=== PATIENT | female | born 1955 | race Caucasian/White ===

== ENCOUNTER 2016-12-23 15:05 | Emergency (ER) | payer MEDICAID ==
[~2016-12-23 15:05] MED LIST: PERC5TAB12 PO
[2016-12-23 15:07] VITALS: BP 122/75; PULSE 107; RESP 16; TEMP 97.9; O2SAT 96
[2016-12-23 16:10] VITALS: BP 111/64; PULSE 100; RESP 18; O2SAT 94
--- NOTE | 2016-12-23 16:25 | PD ---
HPI Chief Complaint: Diabetic Time Seen by Provider: 16:25 Travel History International Travel<30 days: No Contact w/Intl Traveler<30days: No Traveled to known affect area: No History of Present Illness HPI 61-year-old female with history of diabetes, hypertension, metastatic breast cancer to her bone, currently on immunotherapy, presents to the emergency department for evaluation of elevated blood glucose. Patient states it has been in the 300s this week and up to 400 today. This caused her to become concerned so she came to the emergency department. Patient reports increasing fatigue. No recent illnesses, fever, chills. No nausea or vomiting. Patient takes metformin. She is not on insulin. Denies any chest Tightness. No difficulty breathing. No other symptoms to report. PFSH Past Medical History Cancer: Yes (BREAST AND BONE) Diabetes: Yes Patient Takes Glucophage: Yes ?: Not Past Surgical History Hysterectomy: Yes Mastectomy: Yes (left breast) Social History Alcohol Use: No Tobacco Use: No Substance Use: No Allergies-Medications (Allergen,Severity, Reaction): Coded Allergies: No Known Allergies (Unverified , 12/23/16) Reported Meds & Prescriptions Reported Meds & Active Scripts Active Percocet 5-325 mg (Oxycodone/Acetaminophen) Oxycodone 5/325 Acetaminophen Tab 1- 2 Tab PO Q6H PRN Review of Systems Except as stated in HPI: all other systems reviewed are Neg Physical Exam Narrative GENERAL: Well-nourished female patient, no acute distress SKIN: Warm and dry. Left mastectomy. HEAD: Atraumatic. Normocephalic. EYES: Pupils equal and round. No scleral icterus. No injection or drainage. ENT: No nasal bleeding or discharge. Mucous membranes pink and moist. NECK: Trachea midline. No JVD. CARDIOVASCULAR: Elevated rate and rhythm. No murmur appreciated. RESPIRATORY: No accessory muscle use. Clear to auscultation. Breath sounds equal bilaterally. GASTROINTESTINAL: Abdomen soft, non-tender, nondistended. Hepatic and splenic margins not palpable. MUSCULOSKELETAL: No obvious deformities. No clubbing. No cyanosis. No edema. NEUROLOGICAL: Awake and alert. No obvious cranial nerve deficits. Motor grossly within normal limits. Normal speech. PSYCHIATRIC: Appropriate mood and affect; insight and judgment normal. Data Data Last Documented VS Vital Signs Date Time Temp Pulse Resp B/P Pulse Ox O2 Delivery O2 Flow Rate FiO2 12/23/16 16:10 100 18 111/64 94 Room Air 12/23/16 15:07 97.9 Orders Complete Blood Count With Diff (12/23/16 16:41) Comprehensive Metabolic Panel (12/23/16 16:41) Beta Hydroxybutyrate (Acetone) (12/23/16 16:41) Blood Glucose (12/23/16 16:41) Ecg Monitoring (12/23/16 16:41) Iv Access Insert/Monitor (12/23/16 16:41) Oximetry (12/23/16 16:41) NPO (12/23/16 16:41) Sodium Chloride 0.9% Flush (Ns Flush) (12/23/16 16:45) Sodium Chlor 0.9% 1000 Ml Inj (Ns 1000 M (12/23/16 17:15) Insulin Human Regular Inj (Novolin R Inj (12/23/16 18:00) Labs Laboratory Tests Test 12/23/16 16:50 White Blood Count 7.2 TH/MM3 Red Blood Count 4.41 MIL/MM3 Hemoglobin 11.4 GM/DL Hematocrit 35.8 % Mean Corpuscular Volume 81.1 FL Mean Corpuscular Hemoglobin 25.9 PG Mean Corpuscular Hemoglobin 32.0 % Concent Red Cell Distribution Width 16.3 % Platelet Count 156 TH/MM3 Mean Platelet Volume 8.6 FL Neutrophils (%) (Auto) 77.1 % Lymphocytes (%) (Auto) 15.8 % Monocytes (%) (Auto) 5.9 % Eosinophils (%) (Auto) 0.8 % Basophils (%) (Auto) 0.4 % Neutrophils # (Auto) 5.5 TH/MM3 Lymphocytes # (Auto) 1.1 TH/MM3 Monocytes # (Auto) 0.4 TH/MM3 Eosinophils # (Auto) 0.1 TH/MM3 Basophils # (Auto) 0.0 TH/MM3 CBC Comment DIFF FINAL Differential Comment Sodium Level 136 MEQ/L Potassium Level 4.6 MEQ/L Chloride Level 101 MEQ/L Carbon Dioxide Level 27.7 MEQ/L Anion Gap 7 MEQ/L Blood Urea Nitrogen 11 MG/DL Creatinine 0.97 MG/DL Estimat Glomerular Filtration 59 ML/MIN Rate Random Glucose 367 MG/DL Calcium Level 9.4 MG/DL Total Bilirubin 0.3 MG/DL Aspartate Amino Transf 74 U/L (AST/SGOT) Alanine Aminotransferase 113 U/L (ALT/SGPT) Alkaline Phosphatase 76 U/L Total Protein 8.4 GM/DL Albumin 3.8 GM/DL B-Hydroxybutyrate 0.65 MMOL/L MDM Medical Decision Making Medical Screen Exam Complete: Yes Emergency Medical Condition: Yes Medical Record Reviewed: Yes Differential Diagnosis Hyperglycemia versus DKA versus electrolyte abnormality versus dehydration Narrative Course 61 year-old female presents to the emergency department for evaluation. Interpretation services are utilized through [facility]/ [facility]. Patient appears well. IV access was obtained and labs are sent. She is given 1 L normal saline fluid. CBC is without acute concern. CMP is with hyperglycemia 367. Beta hydroxybutyrate is 0.65. She was already given normal saline bolus and then added insulin by my attending physician. Patient will be discharged home to follow-up with primary care provider. She agrees to return immediately with any acute restriction of symptoms. Diagnosis Primary Impression: Hyperglycemia due to type 2 diabetes mellitus Qualified Code: E11.65 - Type 2 diabetes mellitus with hyperglycemia, without long-term current use of insulin Referrals: Primary Care Physician Patient Instructions: Diabetic Hyperglycemia (GEN), General Instructions Additional Instructions: Maintain adequate oral hydration Continue medication as prescribed Follow-up with a primary care provider Return immediately with any acute worsening of symptoms Disposition: 01 DISCHARGE HOME Condition: Stable CamrynTierra SUERO Dec 23, 2016 16:25
[2016-12-23] MEDS ORDERED: SODIUM CHLORIDE 0.9% FLUSH 5 ML FLUSH IVF PRN (16:45)
[2016-12-23 17:14] LABS: AUTOMATED NEUTROPHIL # 5.5 TH/MM3 (1.8-7.7); BASOPHIL % 0.4 % (0.0-2.0); EOSINOPHIL # 0.1 TH/MM3 (0-0.4); EOSINOPHIL % 0.8 % (0.0-4.0); HEMATOCRIT 35.8 % (35.0-46.0); HEMO FLAGS DIFF FINAL; LYMPH % 15.8 % (9.0-44.0); LYMPHOCYTE # 1.1 TH/MM3 (1.0-4.8); MEAN CELL VOLUME 81.1 FL (80.0-100.0); MEAN CORPUSCULAR HEMOGLOBIN 25.9 PG (27.0-34.0); MONO % 5.9 % (0.0-8.0); NEUT % 77.1 % (16.0-70.0); PLATELET COUNT 156 TH/MM3 (150-450); RED BLOOD COUNT 4.41 MIL/MM3 (4.00-5.30); RED CELL DISTRIBUTION WIDTH 16.3 % (11.6-17.2); WHITE BLOOD COUNT 7.2 TH/MM3 (4.0-11.0)
[2016-12-23] MEDS ORDERED: SODIUM CHLOR 0.9% 1000 ML INJ 1,000 ML IV ONE (17:15)
[2016-12-23 17:47] LABS: ALKALINE PHOSPHATASE 76 U/L (45-117); ALT (GPT) 113 U/L (10-53); ANION GAP 7 MEQ/L (5-15); AST (GOT) 74 U/L (15-37); BETA-HYDROXYBUTYRATE 0.65 MMOL/L (0.00-0.39); BICARBONATE 27.7 MEQ/L (21.0-32.0); BLOOD UREA NITROGEN 11 MG/DL (7-18); CHLORIDE 101 MEQ/L (98-107); GLOMERULAR FILTRATION RATE 59 ML/MIN (>89); SODIUM (NA) 136 MEQ/L (136-145); TOTAL BILIRUBIN ADULT 0.3 MG/DL (0.2-1.0)
[2016-12-23 17:48] LABS: POTASSIUM 4.6 MEQ/L (3.5-5.1)
[2016-12-23] MEDS ORDERED: INSULIN HUMAN REGULAR 1,000 UNITS/10 ML VIAL SQ ONE ×2 (18:00→18:30)
--- NOTE | 2016-12-23 18:04 | PD ---
Data Data Last Documented VS Vital Signs Date Time Temp Pulse Resp B/P Pulse Ox O2 Delivery O2 Flow Rate FiO2 12/23/16 16:10 100 18 111/64 94 Room Air 12/23/16 15:07 97.9 Orders Complete Blood Count With Diff (12/23/16 16:41) Comprehensive Metabolic Panel (12/23/16 16:41) Beta Hydroxybutyrate (Acetone) (12/23/16 16:41) Blood Glucose (12/23/16 16:41) Ecg Monitoring (12/23/16 16:41) Iv Access Insert/Monitor (12/23/16 16:41) Oximetry (12/23/16 16:41) NPO (12/23/16 16:41) Sodium Chloride 0.9% Flush (Ns Flush) (12/23/16 16:45) Sodium Chlor 0.9% 1000 Ml Inj (Ns 1000 M (12/23/16 17:15) Insulin Human Regular Inj (Novolin R Inj (12/23/16 18:00) Labs Laboratory Tests Test 12/23/16 16:50 White Blood Count 7.2 TH/MM3 Red Blood Count 4.41 MIL/MM3 Hemoglobin 11.4 GM/DL Hematocrit 35.8 % Mean Corpuscular Volume 81.1 FL Mean Corpuscular Hemoglobin 25.9 PG Mean Corpuscular Hemoglobin 32.0 % Concent Red Cell Distribution Width 16.3 % Platelet Count 156 TH/MM3 Mean Platelet Volume 8.6 FL Neutrophils (%) (Auto) 77.1 % Lymphocytes (%) (Auto) 15.8 % Monocytes (%) (Auto) 5.9 % Eosinophils (%) (Auto) 0.8 % Basophils (%) (Auto) 0.4 % Neutrophils # (Auto) 5.5 TH/MM3 Lymphocytes # (Auto) 1.1 TH/MM3 Monocytes # (Auto) 0.4 TH/MM3 Eosinophils # (Auto) 0.1 TH/MM3 Basophils # (Auto) 0.0 TH/MM3 CBC Comment DIFF FINAL Differential Comment Sodium Level 136 MEQ/L Potassium Level 4.6 MEQ/L Chloride Level 101 MEQ/L Carbon Dioxide Level 27.7 MEQ/L Anion Gap 7 MEQ/L Blood Urea Nitrogen 11 MG/DL Creatinine 0.97 MG/DL Estimat Glomerular Filtration 59 ML/MIN Rate Random Glucose 367 MG/DL Calcium Level 9.4 MG/DL Total Bilirubin 0.3 MG/DL Aspartate Amino Transf 74 U/L (AST/SGOT) Alanine Aminotransferase 113 U/L (ALT/SGPT) Alkaline Phosphatase 76 U/L Total Protein 8.4 GM/DL Albumin 3.8 GM/DL B-Hydroxybutyrate 0.65 MMOL/L [facility] Supervised Visit with ASHWIN: Yes Differential Diagnosis I, Dr. Watson, have reviewed the advance practice practioner's documentation and am in agreement, met with the patient face to face, made the diagnosis, and the medical decision making was done by me. *My assessment and Findings: 61-year-old female with history of type II non- insulin-dependent diabetes, HTN and metastatic breast cancer here with complaint of elevated blood glucose in the 300s and 400s. She denies any polyuria, polydipsia, but does note some increasing fatigue. Exam is unremarkable, no notable peripheral edema, regular rate and rhythm. Differential with hyperglycemia, DKA, HHS, electrolyte abnormality. Laboratory workup notable only for high blood glucose. Patient given first dose of insulin , IV fluids here. She sees Dr. Zhang locally and was encouraged to follow-up with his abdomen as an outpatient for potentially starting insulin daily. Condition: Stable Preethi Watson MD Dec 23, 2016 18:04
[2016-12-23 18:12] VITALS: RESP 18; O2SAT 98
[2016-12-23 18:39] VITALS: BP 131/62
== END 2016-12-23 18:56 | disposition home or self-care (01) ==
LOC: NEPE 15:05
DX: E11.65 Type 2 diabetes mellitus with hyperglycemia (principal); I10 Essential (primary) hypertension; C50.919 Malignant neoplasm of unspecified site of unspecified female breast; C79.51 Secondary malignant neoplasm of bone; Z79.4 Long term (current) use of insulin; Z79.899 Other long term (current) drug therapy
CPT/HCPCS: 80053; 82010; 85025; 96372; 99284; J1815; J7030

== ENCOUNTER 2017-04-23 13:06 | Emergency (ER) | payer MEDICAID ==
[2017-04-23 13:11] VITALS: BP 142/68; PULSE 98; RESP 20; TEMP 97.9; O2SAT 97
--- NOTE | 2017-04-23 13:39 | PD ---
Physical Exam Time Seen by Provider: 13:38 Narrative 61 y/o female here for evaluation of high blood pressure, L sided facial pain. Pain started one week ago. Vital signs reviewed. Seen at triage desk. Awaiting bed placement. Data Data Last Documented VS Vital Signs Date Time Temp Pulse Resp B/P Pulse Ox O2 Delivery O2 Flow Rate FiO2 04/23/17 13:11 97.9 98 20 142/68 97 Room Air MDM Medical Record Reviewed: Yes Supervised Visit with ASHWIN: Moises Lilly Apr 23, 2017 13:39
[2017-04-23] MEDS ORDERED: ULTR50TA5 PO (15:28)
--- NOTE | 2017-04-23 15:28 | PD ---
HPI Chief Complaint: Facial Pain or Swelling Time Seen by Provider: 15:08 Travel History International Travel<30 days: No Contact w/Intl Traveler<30days: No Traveled to known affect area: No History of Present Illness HPI 61-year-old female complaining left-sided facial pain and swelling. Patient states the symptoms started a week ago. Patient was seen by a dentist yesterday and was told it patient has the gum infection. Patient was on amoxicillin and then was changed to Cipro today. Patient has been taking oxycodone for pain. Patient also has been taking ibuprofen for pain. Patient states that the pain persists despite taking oxycodone and ibuprofen. Patient denies any fever chills. Patient states that the pain is sharp severe pain started on the left-sided jaw with radiation to the nose. Patient denies any neck pain. Patient denies any chest pain or shortness of breath. Patient states that her blood pressure has been elevated because of the pain. On a scale of 1-10 the pain is a 9. PFSH Past Medical History Cancer: Yes (BREAST AND BONE) Diabetes: Yes Past Surgical History Hysterectomy: Yes Mastectomy: Yes (left breast) Social History Alcohol Use: No Tobacco Use: No Substance Use: No Allergies-Medications (Allergen,Severity, Reaction): Coded Allergies: No Known Allergies (Unverified , 12/23/16) Reported Meds & Prescriptions Reported Meds & Active Scripts Active Review of Systems General / Constitutional: No: Fever Eyes: No: Visual changes HENT: No: Headaches Cardiovascular: No: Chest Pain or Discomfort Respiratory: No: Shortness of Breath Gastrointestinal: No: Abdominal Pain Genitourinary: No: Dysuria Musculoskeletal: No: Pain Skin: No Rash Neurologic: No: Weakness Psychiatric: No: Depression Endocrine: No: Polydipsia Hematologic/Lymphatic: No: Easy Bruising Physical Exam Narrative GENERAL: Well-nourished, well-developed patient. SKIN: Focused skin assessment warm/dry. HEAD: Normocephalic. EYES: No scleral icterus. No injection or drainage. NECK: Supple, trachea midline. No JVD or lymphadenopathy. CARDIOVASCULAR: Regular rate and rhythm without murmurs, gallops, or rubs. RESPIRATORY: Breath sounds equal bilaterally. No accessory muscle use. GASTROINTESTINAL: Abdomen soft, non-tender, nondistended. MUSCULOSKELETAL: No cyanosis, or edema. BACK: Nontender without obvious deformity. No CVA tenderness. Patient had mild soft tissue swelling with tenderness on the left mandible area. No induration. No redness no heat. No cervical lymphadenopathy. Data Data Last Documented VS Vital Signs Date Time Temp Pulse Resp B/P Pulse Ox O2 Delivery O2 Flow Rate FiO2 04/23/17 13:11 97.9 98 20 142/68 97 Room Air Orders Ketorolac Inj (Toradol Inj) (04/23/17 15:30) MDM Medical Decision Making Medical Screen Exam Complete: Yes Emergency Medical Condition: Yes Differential Diagnosis Differential diagnosis including gingivitis, dental abscess. Narrative Course 61-year-old female with pain and swelling of the left jaw. Patient was seen by a dentist and on pain medication and antibiotic. Patient has appointment for follow-up with a dentist. Diagnosis Primary Impression: Gingivitis Patient Instructions: General Instructions Additional Instructions: Stop Cipro. Clindamycin as directed. Ultram in addition to on a medication for pain. Follow-up with the dentist. Return if worse. Med/Other Pt SpecificInfo: Prescription(s) given Scripts Clindamycin 150 Mg Cap2 Tab PO Q6H #80 CAP Prov:Charles Beck MD 04/23/17 Tramadol (Ultram)50 Mg Tab50 Mg PO Q6H PRN (PAIN) #30 TAB Ref 0 Prov:Charles Beck MD 04/23/17 Disposition: 01 DISCHARGE HOME Condition: Stable Charles Beck MD Apr 23, 2017 15:28
[2017-04-23] MEDS ORDERED: CLIN1CAP5 PO (15:29)
[2017-04-23] MEDS ORDERED: KETOROLAC TROMETHAMINE 60 MG/2 ML (IM) VIAL IM ONE (15:30)
[2017-04-23] MEDS ORDERED: AMOX500C PO (15:47)
== END 2017-04-23 16:02 | disposition home or self-care (01) ==
LOC: NEPD 13:06
DX: K05.10 Chronic gingivitis, plaque induced (principal); R51 Headache; E11.9 Type 2 diabetes mellitus without complications
CPT/HCPCS: 96372; 99284; J1885

== ENCOUNTER 2018-06-21 16:48 | Inpatient (IN) ==
[2018-06-21] MEDS ORDERED: Sod Chloride 0.9% Inj 1,000 ML IV.SIG SCH ×2 (17:00→17:15)
--- NOTE | 2018-06-21 17:12 | ED ---
HPI General Chief complaint: Nausea/Vomiting/Diarrhea Stated complaint: Medical Time Seen by Provider: 06/21/18 16:49 Source: patient, family, EMS and old records reviewed Mode of arrival: EMS Limitations: other (clinical acuity) History of Present Illness HPI Narrative: 62 y/o female presents with hypotension with a systolic blood pressure in the 40s per the ambulance team. They could not get IV access. She has been vomiting and not eating over the past couple of days. They states she has history of breast cancer and stopped chemo 2 weeks ago. Patient speaks [place] and family is currently not available so history is significantly limited but she denies pain. MD complaint: nausea and vomiting Onset (ago): day(s) Related Data Home Medications Medication Instructions Recorded Confirmed Unable to Obtain Home Meds 06/21/18 06/21/18 Allergies Allergy/AdvReac Type Severity Reaction Status Date / Time No Known Allergies Allergy Unverified 06/21/18 17:33 Review of Systems ROS: all other systems reviewed are negative PMFSH History History Provided By: Patient (ovarian and breast cancer that metastasized to bone per her , diabetes, port; Dr. Quinteros is her oncologist) Medical History Medical History Breast cancer (Acute) Cancer (Acute) Diabetes (Acute) FHx: chemotherapy (Acute) Surgical History Surgical History Port-A-Cath in place (Acute) H/O left mastectomy (Acute) Family History Family History Other Family history non-contributory Social History Social History Substance History: No History of Abuse Second Hand Smoke Exposure: No Smoking Status: Never smoker How Often Do You Have a Drink Containing Alcohol: Never Recent Travel in [facility] within the Last 8 Weeks: No Recent Out of Country Travel within the Last 8 Weeks: No Exam Narrative Exam Narrative: GENERAL: 62 y/o female who appears critically ill SKIN: Focused skin assessment diaphoretic HEAD: Atraumatic. Normocephalic. EYES: Pupils equal and round. No scleral icterus. No injection or drainage. ENT: No nasal bleeding or discharge. Mucous membranes pink and moist. NECK: Trachea midline. No JVD. CARDIOVASCULAR: Regular rate and rhythm. RESPIRATORY: No accessory muscle use. Clear to auscultation. Breath sounds equal bilaterally. GASTROINTESTINAL: Abdomen soft, non-tender, nondistended. MUSCULOSKELETAL: No obvious deformities. No clubbing. No cyanosis. No edema. NEUROLOGICAL: Awake and alert. Motor grossly within normal limits. Normal speech. Course Hospital Course: Aggregate critical care time was 60 minutes. Time to perform other separately billable procedures was not included in the critical care time. My time did not include minutes spent treating any other patients simultaneously or on activities that did not directly contribute to the patient's treatment. The services I provided to this patient were to treat and/or prevent clinically significant deterioration that could result in: shock , I provided critical care services requiring my management, as noted below: Chart data review, documentation time, medication orders and management, vital sign assessments/reviewing monitor data, ordering and reviewing lab tests, ordering and interpreting/reviewing x-rays and diagnostic studies, care of the patient and discussion of the patient with the admitting physicians. Reevaluation(s) Reevaluation #1: Patient's blood pressure has improved with IV fluid hydration. Will repeat bolus. Patient still appears critically ill. Given history and appearance with signs of sepsis she will need to be monitored closely in the ICU. and patient are wanting still full code. Consultations Consultation #1: dr herzog agrees to admit Initial Documented Vital Signs Temperature 97.6 F 06/21/18 17:34 Pulse Rate 144 H 06/21/18 17:34 Respiratory Rate 22 06/21/18 17:34 Blood Pressure 102/59 L 06/21/18 17:34 Pulse Oximetry 97 06/21/18 17:34 Last Documented Vital Signs Temperature 97.6 F 06/21/18 17:34 Pulse Rate 135 H 06/21/18 17:42 Respiratory Rate 24 06/21/18 17:42 Blood Pressure 102/59 L 06/21/18 17:34 Pulse Oximetry 98 06/21/18 17:43 Medical Decision Making MDM Narrative Medical decision making narrative: Will check blood work, imaging and dose with IV fluids. Levophed will be given if patient's systolic mean arterial pressure does not improve to over 60. Will initiate prophylactic antibiotics. came to bedside and confirmed history. Extensive discussion with freelance interpreter/translator and they are wanting patient to be full code for now and understand her critical condition and her prior history. They state that they were going to be flying to [place] in the next couple of days. Her family lives there. She stopped chemotherapy given she was having multiple episodes of emesis after discussion with her oncologist. Medical Screen Exam Complete: Yes Emergency Medical Condition: Yes Differential Diagnosis Differential Diagnosis: Sepsis, anemia, renal Failure Lab Data Lab results reviewed: Yes I reviewed the patient's lab results. Lab results narrative: aptt needs recollect-?heparin contamination Result diagrams: 06/21/18 17:10 06/21/18 17:10 Lab Results 06/21/18 06/21/18 06/21/18 Range/Units 17:10 17:10 17:10 WBC 16.9 H (4.0-11.0) th/mm3 RBC 4.29 (4.00-5.30) mil/mm3 Hgb 11.9 (11.6-15.3) gm/dL Hct 36.4 (35.0-46.0) % MCV 84.8 (80.0-100.0) fL MCH 27.8 (27.0-34.0) pg MCHC 32.8 (32.0-36.0) % RDW 18.5 H (11.6-17.2) % Plt Count 572 H (150-450) th/mm3 MPV 8.1 (7.0-11.0) fL Prelim Diff (Auto) Slide review pending Neut % (Auto) 84.4 H (16.0-70.0) % Lymph % (Auto) 2.6 L (9.0-44.0) % [place] % (Auto) 13.0 H (0.0-8.0) % Eos % (Auto) 0.0 (0.0-4.0) % Baso % (Auto) 0.0 (0.0-2.0) % Neut # (Auto) 14.3 H (1.8-7.7) th/mm3 Lymph # (Auto) 0.4 L (1.0-4.8) th/mm3 [place] # (Auto) 2.2 H (0.0-0.9) th/mm3 Eos # (Auto) 0.0 (0.0-0.4) th/mm3 Baso # (Auto) 0.0 (0.0-0.2) th/mm3 WBC Differential . Diff Scan Auto diff confirmed Differential Comment . PT 11.3 (9.8-11.6) sec INR 1.1 Ratio APTT 147.3 H* (24.3-30.1) sec Sodium 129 L (136-145) meq/L Potassium 2.6 L* (3.5-5.1) meq/L Chloride 84 L (98-107) meq/L Carbon Dioxide 28.6 (21.0-32.0) meq/L Anion Gap 16 H (5-15) meq/L BUN 44 H (7-18) mg/dL Creatinine 1.37 H (0.50-1.00) mg/dL Estimated GFR 39 L (>89) mL/min Random Glucose 233 H (74-106) mg/dL Lactic Acid (0.4-2.0) mmol/L Calcium 7.6 L (8.5-10.1) mg/dL Magnesium 2.9 H (1.5-2.5) mg/dL Total Bilirubin 1.0 (0.2-1.0) mg/dL AST 53 H (15-37) U/L ALT 11 (10-53) U/L Alkaline Phosphatase 88 (45-117) U/L Total Creatine Kinase 58 (26-192) U/L Troponin I Less than 0.02 L (0.02-0.05) ng/mL Total Protein 6.9 (6.4-8.2) g/dL Albumin 2.4 L (3.4-5.0) g/dL 06/21/18 Range/Units 17:10 WBC (4.0-11.0) th/mm3 RBC (4.00-5.30) mil/mm3 Hgb (11.6-15.3) gm/dL Hct (35.0-46.0) % MCV (80.0-100.0) fL MCH (27.0-34.0) pg MCHC (32.0-36.0) % RDW (11.6-17.2) % Plt Count (150-450) th/mm3 MPV (7.0-11.0) fL Prelim Diff (Auto) Neut % (Auto) (16.0-70.0) % Lymph % (Auto) (9.0-44.0) % [place] % (Auto) (0.0-8.0) % Eos % (Auto) (0.0-4.0) % Baso % (Auto) (0.0-2.0) % Neut # (Auto) (1.8-7.7) th/mm3 Lymph # (Auto) (1.0-4.8) th/mm3 [place] # (Auto) (0.0-0.9) th/mm3 Eos # (Auto) (0.0-0.4) th/mm3 Baso # (Auto) (0.0-0.2) th/mm3 WBC Differential Diff Scan Differential Comment PT (9.8-11.6) sec INR Ratio APTT (24.3-30.1) sec Sodium (136-145) meq/L Potassium (3.5-5.1) meq/L Chloride (98-107) meq/L Carbon Dioxide (21.0-32.0) meq/L Anion Gap (5-15) meq/L BUN (7-18) mg/dL Creatinine (0.50-1.00) mg/dL Estimated GFR (>89) mL/min Random Glucose (74-106) mg/dL Lactic Acid 3.2 H (0.4-2.0) mmol/L Calcium (8.5-10.1) mg/dL Magnesium (1.5-2.5) mg/dL Total Bilirubin (0.2-1.0) mg/dL AST (15-37) U/L ALT (10-53) U/L Alkaline Phosphatase (45-117) U/L Total Creatine Kinase (26-192) U/L Troponin I (0.02-0.05) ng/mL Total Protein (6.4-8.2) g/dL Albumin (3.4-5.0) g/dL Imaging Data Attestation: I personally reviewed and interpreted this imaging study as follows : Radiologist's impression: Chest X-Ray 06/21/18 17:00 CONCLUSION: 1. Large left-sided opacity likely representing pleural effusion with associated volume loss and/or airspace consolidation. 2. Suspected small pleural-based opacity inferiorly on the right could represent a pleural-based mass or pleural effusion. Discharge Plan Discharge Disposition Patient Disposition: 30 Still Patient Discharge Condition Condition: Critical Discharge Details Diagnosis: Sepsis, Pleural effusion, Breast cancer metastasized to bone, Acute hypokalemia , Acute renal insufficiency Physicians Team ED Provider: Esperanza Pang Primary Care Provider: Primary Care Dana Ball Attending Provider: Guanako Herzog Other Providers: Melinda Iniguez Interventions Interventions: Vital Signs Last Done: 06/21/18 17:42 Status ED Status: Admitted Patient
[2018-06-21] MEDS ORDERED: Vancomycin Inj 1 GM/200 ML PIGGYBACK IV.SIG ONE (17:25)
[2018-06-21] MEDS ORDERED: Piperacil/Tazo 4.5 GM Premix 4.5 GM/100 ML BAG IV.SIG ONE (17:25)
--- NOTE | 2018-06-21 17:46 | XR ---
EXAM DATE: 06/21/2018 5:39 PM EDT AGE/SEX: 62 years / Female INDICATIONS: Fever CLINICAL DATA: This is the patient's initial encounter. Patient reports that signs and symptoms have been present for 1 day and indicates a pain score of Nonresponsive. MEDICAL/SURGICAL HISTORY: Non-responsive. Non-responsive. Infusaport COMPARISON: No prior exams available for comparison. FINDINGS: Portable AP view of the chest demonstrates a normal size cardiac silhouette. Right chest wall Infuse- a-Port is present with distal tip in the superior vena cava. Lungs are underinflated and there is a l arge left pleural-parenchymal opacity. Possible small dural based opacity is present on the right inf eriorly. No pneumothorax is identified. The bones demonstrate no acute abnormality. CONCLUSION: 1. Large left-sided opacity likely representing pleural effusion with associated volume loss and/or airspace consolidation. 2. Suspected small pleural-based opacity inferiorly on the right could represent a pleural-based mas s or pleural effusion. Electronically signed by: Mega Razo MD 06/21/2018 5:45 PM EDT
[2018-06-21] MEDS ORDERED: Vancomycin Inj 1,000 MG in Sodium Chlor 0.9% Inj 250 ML IV.SIG ONE (18:00)
[2018-06-21 18:02] LABS: Hematocrit 36.4 % (35.0-46.0); Hemoglobin 11.9 gm/dL (11.6-15.3); Lymph # (Auto) 0.4 th/mm3 (1.0-4.8); Lymph % (Auto) 2.6 % (9.0-44.0); Mean Corpuscular HGB Conc 32.8 % (32.0-36.0); Mean Corpuscular Hemoglobin 27.8 pg (27.0-34.0); Mean Corpuscular Volume 84.8 fL (80.0-100.0); Mean Platelet Volume 8.1 fL (7.0-11.0); Mono # (Auto) 2.2 th/mm3 (0.0-0.9); Neut # (Auto) 14.3 th/mm3 (1.8-7.7); Neut % (Auto) 84.4 % (16.0-70.0); Platelet Count 572 th/mm3 (150-450); Red Blood Count 4.29 mil/mm3 (4.00-5.30); Red Cell Distribution Width 18.5 % (11.6-17.2); White Blood Count 16.9 th/mm3 (4.0-11.0)
[2018-06-21 18:21] LABS: INR 1.1 Ratio; Prothrombin Time 11.3 sec (9.8-11.6)
[2018-06-21 18:25] LABS: Activated Partial Thrombo Time 147.3 sec (24.3-30.1)
[2018-06-21] MEDS ORDERED: Acetaminophen 325 MG Tablet PO PRN (18:31)
[2018-06-21] MEDS ORDERED: HYDROmorphone PF Inj 2 MG/ML Vial IV.PUSH PRN (18:31)
[2018-06-21] MEDS ORDERED: Bisacodyl 10 MG Supp RECTAL PRN (18:31)
[2018-06-21] MEDS ORDERED: Norepinephrine Inj 16 MG in Sodium Chlor 0.9% Inj 234 ML IV.CONT PRN (18:38)
--- NOTE | 2018-06-21 18:59 | P.HPCC ---
History of Present Illness Service: Critical care medicine Primary Care Physician: No Primary Care Physician Chief Complaint: Nausea/vomiting History of Present Illness: This is a 62-year-old female. Date of admission 06/21/2018. Past medical history includes diabetes mellitus, breast cancer metastatic to the bones. Patient is been receiving admitted to the hospital multiple times at other facilities for her underlying illness. She recently had a paracentesis 1 month ago and a thoracentesis 3 weeks ago. Her oncologist is Dr. Deonte Quinteros. She presents to [facility] with several day history of nausea/bilious vomiting and diarrhea. EMS found her with a systolic blood pressure in the 40s. She is received 2 L normal saline after accessing her right Port-A-Cath. She received vancomycin Pipracil/tazobactam. Her initial lactate was 3.2. BMP after 2 hours and still not resulted. CBC showed leukocytosis of 16,000. PTT was elevated 147 will be repeated along with a fibrinogen. She is currently resting in bed breathing about 20 breaths per minute in room E 59. She is Iraqi-speaking only. does speak Vietnamese. Inpatient Certification: I certify that the inpatient services were ordered in accordance with Medicare regulations governing the order. This includes certification that hospital inpatient services are reasonable and necessary and in the case of services not specified as inpatient-only under 42 CFR 419.22(n), that they are appropriately provided as inpatient services in accordance to with the 2-midnight benchmark under 43 CFR 412.3(e) Estimated Total Length of Stay (Days): 5 Plans for Post Hospital Care: Home Review of Systems other (Language barrier) [facility] - History History Provided By: Patient (ovarian and breast cancer that metastasized to bone per her , diabetes, port; Dr. Quinteros is her oncologist) - Medical History Medical History: Medical History (Last Updated 06/21/18 @ 18:58 by Guanako Herzog MD) Breast cancer Cancer Diabetes FHx: chemotherapy - Surgical History Surgical History: Surgical History (Last Updated 06/21/18 @ 18:58 by Guanako Herzog MD) Port-A-Cath in place (Acute) H/O left mastectomy - Family History Family History: Family History (Last Updated 06/21/18 @ 18:58 by Guanako Herzog MD) Other Family history non-contributory - Social History I have reviewed the patient's Social History: Yes - Tobacco History Second Hand Smoke Exposure: No Tobacco Use In Past 30 Days: No Smoking Status: Never smoker - Alcohol History How Often Do You Have a Drink Containing Alcohol: Never - Substance Use History Substance History: No History of Abuse - Travel History Recent Travel in the [place] Within the Last 8 Weeks: No Recent Travel Out of the Country Within the Last 8 Weeks: No - Immunization History Tetanus Immunization: Unsure Hx Influenza Vaccine This Season: No Medications and Allergies Active Medications: Active Medications Acetaminophen (Tylenol) 650 mg PO Q6H PRN PRN Reason: PAIN 1-10 AND/OR FEVER >101F Hydrocodone Bitart/Acetaminophen ([place] 5/325) 1 tab PO Q4H PRN PRN Reason: PAIN SCALE 1 TO 5 Al Hydroxide/Mg Hydroxide (Milk Of Magnluisa Liq) 30 ml PO Q12H PRN PRN Reason: Mild Constipation Albuterol (Albuterol Neb (Elvis)) 2.5 mg NEB Q2HR NEB PRN PRN Reason: SHORTNESS OF BREATH/WHEEZING Albuterol (Duoneb Neb (Prn)) 1 ampul NEB Q4HR NEB ELVIS Bisacodyl (Dulcolax Supp) 10 mg RECTAL DAILY PRN PRN Reason: SEVERE CONSITIPATION Chlorhexidine Gluconate (Chlorhexidine 2% Cloth) 3 pack TOPICAL DAILY@0400 ELVIS Stop: 06/27/18 03:59 Chlorhexidine Gluconate (Chlorhexidine 2% Cloth) 3 pack TOPICAL DAILY@0400 PRN PRN Reason: Extra cloth needed Stop: 06/27/18 03:59 Hydromorphone HCl (Dilaudid Pf Inj) 1 mg IV.PUSH Q4H PRN PRN Reason: PAIN SCALE 6 TO 10 Sodium Chloride (Ns Inj) 1,000 mls @ 0 mls/hr IV.SIG BOLUS ELVIS Stop: 06/22/18 17:01 Last Infusion: 06/21/18 18:17 Dose: Infused Sodium Chloride (Ns Inj) 1,000 mls @ 0 mls/hr IV.SIG BOLUS ELVIS Last Admin: 06/21/18 18:17 Dose: 999 mls/hr Vancomycin HCl 1,000 mg/ (Sodium Chloride) 250 mls @ 250 mls/hr IV.SIG ONCE ONE Stop: 06/21/18 18:59 Last Admin: 06/21/18 18:18 Dose: 250 mls/hr Sodium Chloride (Ns Inj) 1,000 mls @ 84 mls/hr IV.CONT .[id number] ELVIS Norepinephrine Bitartrate 16 (mg/ Sodium Chloride) 250 mls @ 1.87 mls/hr IV.CONT TITRATE PRN; Protocol PRN Reason: See Protocol Lactulose (Lactulose Liq) 30 ml PO DAILY PRN PRN Reason: SEVERE CONSITIPATION Ondansetron HCl (Zofran Inj) 4 mg IV.PUSH Q6H PRN PRN Reason: NAUSEA OR VOMITING Pantoprazole Sodium (Protonix Inj) 40 mg IV.PUSH DAILY ELVIS Senna/Docusate Sodium (Marisa-Colace) 1 tab PO BID ELVIS Sennosides (Senokot) 17.2 mg PO Q12H PRN PRN Reason: Moderate Constipation Sodium Chloride (Ns Flush) 2 ml IV.FLUSH BID ELVIS Sodium Chloride (Ns Flush) 2 ml IV.FLUSH PRN PRN PRN Reason: FLUSH AFTER USING IV ACCESS Terbutaline Sulfate (Brethine Inj) 1 mg SQ UNSCH PRN PRN Reason: For Extravasation Terbutaline Sulfate (Brethine Inj) 1 mg SQ UNSCH PRN PRN Reason: For Extravasation Allergies Allergy/AdvReac Type Severity Reaction Status Date / Time No Known Allergies Allergy Unverified 06/21/18 17:33 Home Medications Medication Instructions Recorded Confirmed Type Unable to Obtain Home Meds 06/21/18 06/21/18 History Results - Labs CBC & Chem 7: 06/21/18 17:10 06/21/18 17:10 Labs: Short CBC 06/21/18 Range/Units 17:10 WBC 16.9 H (4.0-11.0) th/mm3 Hgb 11.9 (11.6-15.3) gm/dL Hct 36.4 (35.0-46.0) % Plt Count 572 H (150-450) th/mm3 - Imaging Impressions Chest X-Ray 06/21/18 17:00 CONCLUSION: 1. Large left-sided opacity likely representing pleural effusion with associated volume loss and/or airspace consolidation. 2. Suspected small pleural-based opacity inferiorly on the right could represent a pleural-based mass or pleural effusion. Exam Vital signs: Vital Signs 06/21/18 17:34 06/21/18 17:42 06/21/18 17:43 Temperature 97.6 F Pulse Rate 144 H 135 H Respiratory Rate 22 24 Blood Pressure 102/59 L Pulse Oximetry 97 98 98 Intake & Output 06/20/18 06/21/18 06/21/18 18:59 06:59 18:59 Intake Total 1100 / 1100 Balance 1100 / 1100 Weight 63.503 kg Intake: IV 1100 / 1100 Zosyn 4.5 GM Premix 4.5 gm In 100 / 100 100 ml @ 200 mls/hr IV.SIG ONCE ONE Rx#:[id number] NS Inj 1,000 ML @ Wide Open IV. 1000 / 1000 SIG BOLUS ELVIS Rx#:[id number] - Constitutional mild distress - Routine HEENT Exam Head: Present: normocephalic, atraumatic Eye: Present: EOMI, PERRL, normal accommodation ENT: Present: mucous membranes dry, oropharynx clear - Routine Chest/Breast/Axilla Exam Chest wall: Absent: tenderness Breast: Absent: tenderness Axillae: Present: lymphadenopathy - Routine Respiratory Exam Present: decreased breath sounds, crackles. Absent: accessory muscle use, wheezes - Routine Cardiovascular Exam Present: S1, S2, tachycardia. Absent: murmur - Routine Abdominal Exam Present: soft, tenderness, guarding. Absent: distended, rebound - Routine Extremities Exam Absent: cyanosis, clubbing, edema - Routine Skin Exam Present: intact - Routine Neurological Exam Present: alert, oriented X3, CN II-XII intact Septic Shock Reassessment Septic shock perfusion: reassessment completed Caprini VTE Risk Assessment Caprini VTE Risk Assessment: Moderate/High Risk (score >= 2) Caprini Risk Assessment Model: Point Value = 1 Point Value = 2 Point Value = 3 Point Value = 5 Age 41-60 Minor surgery BMI > 25 kg/m2 Swollen legs Varicose veins or History of unexplained or recurrent spontaneous Oral contraceptives or hormone replacement Sepsis (< 1 month) Serious lung disease, including pneumonia (< 1 month) Abnormal pulmonary function Acute myocardial infarction Congestive heart failure (< 1 month) History of inflammatory bowel disease Medical patient at bed rest Age 61-74 Arthroscopic surgery Major open surgery (> 45 min) Laparoscopic surgery (> 45 min) Malignancy Confined to bed (> 72 hours) Immobilizing plaster cast Central venous access Age >= 75 History of VTE Family history of VTE Factor V Leiden Prothrombin [id number] Lupus anticoagulant Anticardiolipin antibodies Elevated serum homocysteine Heparin-induced thrombocytopenia Other congenital or acquired thrombophilia Stroke (< 1 month) Elective arthroplasty Hip, pelvis, or leg fracture Acute spinal cord injury (< 1 month) Prophylaxis Regimen: Total Risk Factor Score Risk Level Prophylaxis Regimen 0-1 Low Early ambulation 2 Moderate Order ONE of the following: *Sequential Compression Device (SCD) *Heparin 5000 units SQ BID 3-4 Higher Order ONE of the following medications: *Heparin 5000 units SQ TID *Enoxaparin/Lovenox 40 mg SQ daily (WT < 150 kg, CrCl > 30 mL/min) *Enoxaparin/Lovenox 30 mg SQ daily (WT < 150 kg, CrCl > 10-29 mL/min) *Enoxaparin/Lovenox 30 mg SQ BID (WT < 150 kg, CrCl > 30 mL/min) AND/OR *Sequential Compression Device (SCD) 5 or more Highest Order ONE of the following medications: *Heparin 5000 units SQ TID (Preferred with Epidurals) *Enoxaparin/Lovenox 40 mg SQ daily (WT < 150 kg, CrCl > 30 mL/min) *Enoxaparin/Lovenox 30 mg SQ daily (WT < 150 kg, CrCl > 10-29 mL/min) *Enoxaparin/Lovenox 30 mg SQ BID (WT < 150 kg, CrCl > 30 mL/min) AND *Sequential Compression Device (SCD) Assessment and Plan - Assessment and Plan Plan: Neuro/Psych: Acute toxic metabolic encephalopathy secondary to severe sepsis Acetaminophen 650 p.o. every 6 hours as needed fever Hydrocodone/acetaminophen 5/325 1 tablet every 4 as needed 1-5 Hydromorphone 1 g IV every 4 hours. Pain 6 - 10 CV: Sinus tachycardia Lactic acidosis Bolus 2 L normal saline in ED. Recheck lactate and follow trends until cleared Initial troponin negative. Recheck in a.m. Follow-up on EKG and limited 2D echocardiogram ordered Resp: Likely left pleural effusion CT thorax ordered. Likely need thoracentesis Recheck coags prior to initiation Currently on room air not emergent Incentives biometry every hour while awake Albuterol/ipratropium aerosols every 4 hours with albuterol aerosols every 2 hours as needed dyspnea GI: Nausea/vomiting Hypoalbuminemia Elevated AST Currently n.p.o. LFTs not grossly abnormal. Check lipase and amylase Pantoprazole for GI prophylaxis Docusate serum/senna 1 tablet twice daily for bowel regimen Check abdominal ultrasound with history of paracentesis : Hand catheter if indicated for accurate I's and O's in a critically ill patient Endo: Diabetes mellitus Sliding scale insulin Accu-Cheks to maintain euglycemia/low regimen with aspart insulin every 6 hours Check TSH Renal: Acute kidney injury Recheck BMP in a.m. 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 Repeat coags. Monitor CBC daily. Follow trends. No indication for transfusion of blood products at this time. ID: Severe sepsis received piperacillin/tazobactam and vancomycin ED. Renally dose antibiotics as above. Blood cultures 2 ordered. UA pending MSK: PT evaluate and treat FEN: Hypopotassemia Hyponatremia Hyper magnesium Replace electrolytes as clinically indicated 80 mEq KCl x1 now. Access -Utilize right Port-A-Cath. Prophylaxis -GI -pantoprazole -DVT-SCD/holding pharmacological pending repeat coags and fibrinogen Level 3 H&P Code Status: Full code Discussed Condition With: Dr. Pang/ED physician. Patient's who speaks Vietnamese and through boom stick man at bedside. Care plan discussed and all questions answered.
[2018-06-21 19:01] LABS: Alanine Aminotransferase 11 U/L (10-53); Albumin 2.4 g/dL (3.4-5.0); Alkaline Phosphatase 88 U/L (45-117); Anion Gap 16 meq/L (5-15); Aspartate Aminotransferase 53 U/L (15-37); Blood Urea Nitrogen 44 mg/dL (7-18); Calcium 7.6 mg/dL (8.5-10.1); Carbon Dioxide 28.6 meq/L (21.0-32.0); Chloride 84 meq/L (98-107); Glomerular Filtration Rate 39 mL/min (>89); Glucose,Random 233 mg/dL (74-106); Magnesium 2.9 mg/dL (1.5-2.5); Total Protein 6.9 g/dL (6.4-8.2)
[2018-06-21 19:05] LABS: Creatine Kinase 58 U/L (26-192); Potassium 2.6 meq/L (3.5-5.1)
[2018-06-21 19:06] LABS: Sodium 129 meq/L (136-145)
[2018-06-21] MEDS ORDERED: Dextrose 50% in Water 50 ML Vial IV.PUSH PRN (19:06)
[2018-06-21] MEDS ORDERED: Potassium Phosphate Inj 30 MMOL in Sodium Chlor 0.9% Inj 250 ML IV.SIG PRN (19:08)
[2018-06-21] MEDS ORDERED: Sodium Phosphate Inj 30 MMOL in Sodium Chlor 0.9% Inj 250 ML IV.SIG PRN (19:08)
[2018-06-21] MEDS ORDERED: Potassium Phosphate 500 MG Soluble Tablet PO PRN ×2 (19:08)
[2018-06-21] MEDS ORDERED: Magnesium Sulfate Inj 2 GM in Sodium Chlor 0.9% Inj 96 ML IV.SIG PRN (19:08)
[2018-06-21] MEDS ORDERED: Magnesium Sulfate Inj 4 GM in Sodium Chlor 0.9% Inj 92 ML IV.SIG PRN (19:08)
[2018-06-21] MEDS ORDERED: Potassium Chlor 20 mEq Premix 20 MEQ/100 ML PIGGYBACK IV.SIG PRN ×2 (19:08)
[2018-06-21] MEDS ORDERED: Magnesium Oxide 400 MG Tablet PO PRN (19:08)
[2018-06-21] MEDS ORDERED: Potassium Chlor 40 mEq Premix 40 MEQ/100 ML PIGGYBACK IV.SIG PRN ×2 (19:08)
[2018-06-21] MEDS ORDERED: Potassium Chloride 25 MEQ Effervescent Tablet PO PRN (19:08)
[2018-06-21] MEDS ORDERED: Vancomycin Consult Pharmacy OTHER PRN (19:31)
--- NOTE | 2018-06-21 20:13 | CT ---
EXAM DATE: 06/21/2018 7:55 PM EDT AGE/SEX: 62 years / Female INDICATIONS: Shortness of breath. Abnormal chest x-ray exam demonstrating pleural fluid and possible airspace consolidation. There is also a possible pleural-based mass in the right lung base. CLINICAL DATA: This is the patient's initial encounter. Patient reports that signs and symptoms have been present for 1 day and indicates a pain score of Nonresponsive. MEDICAL/SURGICAL HISTORY: Carcinoma, breast. Diabetes. Mastectomy, left. RADIATION DOSE: 6.0 CTDI (mGy) COMPARISON: No prior exams available for comparison. TECHNIQUE: Multiple contiguous axial images were obtained through the chest without contrast. Image s were obtained in suspended respiration using multiple row detector helical technique. Using automa chris exposure control and adjustment of the mA and/or kV according to patient size, radiation dose was kept as low as reasonably achievable to obtain optimal diagnostic quality images. DICOM format imag e data is available electronically for review and comparison. FINDINGS: Lungs: The lungs are symmetrically aerated. No infiltrates or nodular densities are seen. Mediastinum: There is good visualization of the great vessels of the middle mediastinum. No evidenc e of mediastinal or hilar adenopathy/mass. Pleurae: There is a moderate size left pleural effusion with areas along the posterior superior ches t wall. Is a smaller loculated right pleural effusion. The lateral component accounts for the pleural -based abnormality seen on the plain film. Axillae: Unremarkable. Bony Structures: Diffuse sclerotic metastasis are present involving almost all of the osseous struct ures. Miscellaneous: The examination was extended to include the upper abdomen, and both adrenal glands ar e normal in size and configuration. CONCLUSION: 1. Extensive diffuse sclerotic osseous metastatic disease. 2. Moderate size left pleural effusion and smaller loculated right effusion. The right lateral compo nent accounts for the pleural-based density seen on the plain film. There are no parenchymal masses. Electronically signed by: Joe Albarran MD 06/21/2018 8:11 PM EDT
[2018-06-21] MEDS ORDERED: Albumin Human 5% Inj 500 ML IV.SIG ONE (21:00)
[2018-06-21] MEDS: Sod Chloride 0.9% Inj 1,000 ML IV.CONT SCH (22:13)
[2018-06-21] MEDS: Potassium Chlor 40 mEq Premix 40 MEQ/100 ML PIGGYBACK IV.SIG SCH (22:13)
[2018-06-21] MEDS: Senna/Docusate Sodium 8.6/50 MG Tablet PO SCH (22:14)
[2018-06-22] MEDS: Insulin NovoLOG Aspart Correctional Sugar Inj SQ SCH ×4 (01:05→17:34)
[2018-06-22] MEDS: Piperacil/Tazo 3.375 GM Premix 50 ML IV.SIG SCH ×4 (01:30→17:06)
[2018-06-22] MEDS: Potassium Chlor 40 mEq Premix 40 MEQ/100 ML PIGGYBACK IV.SIG SCH (01:31)
--- NOTE | 2018-06-22 01:42 | US ---
EXAM DATE: 06/22/2018 12:51 AM EDT AGE/SEX: 62 years / Female INDICATIONS: Abdominal pain with nausea and vomiting. CLINICAL DATA: This is the patient's initial encounter. Patient reports that signs and symptoms have been present for 2 days and indicates a pain score of 10/10. MEDICAL/SURGICAL HISTORY: Carcinoma, breast. Diabetes. Chemotherapy. Mastectomy, left. Port -A-Cath placement. COMPARISON: No prior exams available for comparison. MEASUREMENTS: Liver:__ 17.9 cm. Common Bile Duct:___ 8mm. Right Kidney:___11.2 x 4.8 x 4.0 cm. Left Kidney:___10.6 x 5.3 x 5.6 cm. Spleen:___8.1 cm. FINDINGS: Liver: Mild enlargement. Small echogenic lesion in right lobe near dome, possibly a small hemangioma . Portal Vein: Hepatopedal flow seen in portal vein. Common Duct: No intraluminal mass or stone visualized. Mildly dilated to 8 mm. Gallbladder: Positive for gallbladder sludge and mild wall thickening with trace pericholecystic fl uid. Pancreas: The visualized portions are within normal limits Right Kidney: Curvilinear calcification noted in the midpole. Probable small 1 cm complex cyst. Left Kidney: Possible small nonobstructing calculus in the midpole. Ascites: Small amount of ascites. Pleural Effusion: Left Spleen: No focal lesion. Aorta: Non aneurysmal. IVC: Within normal limits Other: None. CONCLUSION: 1. Positive for gallbladder sludge without gallbladder wall thickening and trace pericholecystic flu id. Cannot exclude mild cholecystitis. Common bile duct mildly dilated at 8 mm. 2. Small amount of ascites. Electronically signed by: Dima Regalado MD 06/22/2018 1:41 AM EDT
[2018-06-22] MEDS ORDERED: Chlorhexidine Gluconate 2% 1 Pack (2 Cloths) TOPICAL PRN (04:00)
[2018-06-22] MEDS: Chlorhexidine Gluconate 2% 1 Pack (2 Cloths) TOPICAL SCH (05:01)
[2018-06-22 06:59] LABS: Hematocrit 27.4 % (35.0-46.0); Hemoglobin 9.1 gm/dL (11.6-15.3); Lymph # (Auto) 0.4 th/mm3 (1.0-4.8); Lymph % (Auto) 3.3 % (9.0-44.0); Mean Corpuscular Volume 84.7 fL (80.0-100.0); Mean Platelet Volume 7.4 fL (7.0-11.0); Mono # (Auto) 1.7 th/mm3 (0.0-0.9); Mono % (Auto) 15.7 % (0.0-8.0); Neut # (Auto) 8.7 th/mm3 (1.8-7.7); Platelet Count 452 th/mm3 (150-450); Red Blood Count 3.24 mil/mm3 (4.00-5.30); Red Cell Distribution Width 17.9 % (11.6-17.2); White Blood Count 10.8 th/mm3 (4.0-11.0)
[2018-06-22 07:07] LABS: INR 1.1 Ratio; Prothrombin Time 10.7 sec (9.8-11.6)
[2018-06-22 07:52] LABS: Alanine Aminotransferase 11 U/L (10-53); Albumin 2.7 g/dL (3.4-5.0); Alkaline Phosphatase 62 U/L (45-117); Anion Gap 13 meq/L (5-15); Aspartate Aminotransferase 64 U/L (15-37); Blood Urea Nitrogen 34 mg/dL (7-18); Calcium 6.7 mg/dL (8.5-10.1); Carbon Dioxide 28.4 meq/L (21.0-32.0); Chloride 96 meq/L (98-107); Glomerular Filtration Rate Greater Than 89 mL/min (>89); Glucose,Random 148 mg/dL (74-106); Lactate Dehydrogenase 232 U/L (84-246); Lipase 100 U/L (73-393); Magnesium 2.8 mg/dL (1.5-2.5); Phosphorus 1.5 mg/dL (2.5-4.9); Potassium 3.5 meq/L (3.5-5.1); Sodium 137 meq/L (136-145); Thyroid Stimulating Hormone 0.291 uIU/mL (0.358-3.740); Total Protein 6.1 g/dL (6.4-8.2)
[2018-06-22 08:11] LABS: Amylase 132 U/L (25-115)
[2018-06-22] MEDS: Sod Chloride 0.9% Inj 1,000 ML IV.CONT SCH (08:19)
[2018-06-22] MEDS: Pantoprazole Inj 40 MG Vial IV.PUSH SCH (08:20)
[2018-06-22] MEDS: Senna/Docusate Sodium 8.6/50 MG Tablet PO SCH ×2 (08:20→20:08)
--- NOTE | 2018-06-22 08:50 | P.PNCC ---
Subjective Subjective Remarks/Hospital Course: 06/21: This is a 62-year-old female. Date of admission 06/21/2018. Past medical history includes diabetes mellitus, breast cancer metastatic to the bones. Patient is been receiving admitted to the hospital multiple times at other facilities for her underlying illness. She recently had a paracentesis 1 month ago and a thoracentesis 3 weeks ago. Her oncologist is Dr. Deonte Quinteros. She presents to [facility] with several day history of nausea/bilious vomiting and diarrhea. EMS found her with a systolic blood pressure in the 40s. She is received 2 L normal saline after accessing her right Port-A-Cath. She received vancomycin Pipracil/tazobactam. Her initial lactate was 3.2. BMP after 2 hours and still not resulted. CBC showed leukocytosis of 16,000. PTT was elevated 147 will be repeated along with a fibrinogen. She is currently resting in bed breathing about 20 breaths per minute in room E 59. She is [place]-speaking only. does speak Slovak. 06/22: Resting in bed slightly tachypneic. Complains of some shortness of breath. Not in any acute distress. Coags came back normal. Awaiting left thoracentesis by IR. Objective Vital Signs / I&O: Vital Signs 06/21/18 17:34 06/21/18 17:42 06/21/18 17:43 Temperature 97.6 F Pulse Rate 144 H 135 H Respiratory Rate 22 24 Blood Pressure 102/59 L Pulse Oximetry 97 98 98 06/21/18 20:25 06/21/18 20:31 06/21/18 21:00 Temperature 98.8 F Pulse Rate 127 H 128 H Respiratory Rate 28 H 15 Blood Pressure 101/68 Pulse Oximetry 99 100 100 06/21/18 22:00 06/21/18 22:13 06/21/18 22:30 Temperature Pulse Rate 127 H 126 H 128 H Respiratory Rate 25 H 23 17 Blood Pressure 114/72 103/66 Pulse Oximetry 100 99 06/21/18 23:00 06/21/18 23:30 06/22/18 00:00 Temperature Pulse Rate 124 H 123 H 123 H Respiratory Rate 28 H 9 L 24 Blood Pressure 106/65 104/66 101/59 L Pulse Oximetry 100 100 100 06/22/18 00:30 06/22/18 01:00 06/22/18 01:31 Temperature Pulse Rate 118 H 125 H 119 H Respiratory Rate 21 15 27 H Blood Pressure 100/61 110/65 116/82 Pulse Oximetry 100 100 100 06/22/18 02:00 06/22/18 02:30 06/22/18 03:00 Temperature Pulse Rate 124 H 122 H 121 H Respiratory Rate 24 27 H 27 H Blood Pressure 101/66 101/68 106/65 Pulse Oximetry 100 100 98 06/22/18 03:30 06/22/18 04:00 06/22/18 04:09 Temperature Pulse Rate 118 H 120 H 114 H Respiratory Rate 27 H 25 H 22 Blood Pressure 104/67 107/71 Pulse Oximetry 100 100 06/22/18 04:30 06/22/18 05:00 06/22/18 05:30 Temperature Pulse Rate 123 H 122 H 123 H Respiratory Rate 28 H 26 H 27 H Blood Pressure 114/69 110/69 109/70 Pulse Oximetry 100 100 100 06/22/18 06:00 06/22/18 07:57 Temperature Pulse Rate 124 H 115 H Respiratory Rate 24 20 Blood Pressure 117/74 Pulse Oximetry 100 Intake & Output 06/21/18 06/22/18 06/22/18 18:59 06:59 18:59 Intake Total 1100 / 1100 150 / 150 1050 / 1050 Balance 1100 / 1100 150 / 150 1050 / 1050 Weight 63.503 kg Intake: IV 1100 / 1100 150 / 150 1050 / 1050 NS Inj 1,000 ML @ 84 mls/hr IV. 1000 / 1000 CONT .[id number] [facility] Rx#:[id number] Zosyn 3.375 GM Premix 50 ML @ 50 / 50 50 / 50 100 mls/hr IV.SIG Q6H [facility] Rx#: [id number] Zosyn 4.5 GM Premix 4.5 gm In 100 / 100 100 ml @ 200 mls/hr IV.SIG ONCE ONE Rx#:[id number] KCl 40 mEq Premix Inj 40 meq In 100 / 100 100 ml @ 25 mls/hr IV.SIG Q4H [facility] Rx#:[id number] NS Inj 1,000 ML @ Wide Open IV. 1000 / 1000 SIG BOLUS [facility] Rx#:[id number] Result Diagrams: 06/22/18 06:30 06/22/18 06:30 Other Results: Laboratory Results - last 24 hr 06/21/18 06/21/18 06/21/18 17:10 17:10 17:10 WBC 16.9 H RBC 4.29 Hgb 11.9 Hct 36.4 MCV 84.8 MCH 27.8 MCHC 32.8 RDW 18.5 H Plt Count 572 H MPV 8.1 Prelim Diff (Auto) Slide review pending Neut % (Auto) 84.4 H Lymph % (Auto) 2.6 L [place] % (Auto) 13.0 H Eos % (Auto) 0.0 Baso % (Auto) 0.0 Neut # (Auto) 14.3 H Lymph # (Auto) 0.4 L [place] # (Auto) 2.2 H Eos # (Auto) 0.0 Baso # (Auto) 0.0 WBC Differential . Diff Scan Auto diff confirmed Differential Comment . PT 11.3 INR 1.1 APTT 147.3 H* Fibrinogen Sodium 129 L Potassium 2.6 L* Chloride 84 L Carbon Dioxide 28.6 Anion Gap 16 H BUN 44 H Creatinine 1.37 H Estimated GFR 39 L POC Glucose Random Glucose 233 H Lactic Acid Calcium 7.6 L Prot Corrected Calcium Phosphorus Magnesium 2.9 H Total Bilirubin 1.0 AST 53 H ALT 11 Alkaline Phosphatase 88 Ammonia Lactate Dehydrogenase Total Creatine Kinase 58 Troponin I Less than 0.02 L Total Protein 6.9 Albumin 2.4 L Amylase Lipase TSH Nasal Screen MRSA (PCR) 06/21/18 06/21/18 06/22/18 17:10 20:00 05:01 WBC RBC Hgb Hct MCV MCH MCHC RDW Plt Count MPV Prelim Diff (Auto) Neut % (Auto) Lymph % (Auto) [place] % (Auto) Eos % (Auto) Baso % (Auto) Neut # (Auto) Lymph # (Auto) [place] # (Auto) Eos # (Auto) Baso # (Auto) WBC Differential Diff Scan Differential Comment PT INR APTT Fibrinogen Sodium Potassium Chloride Carbon Dioxide Anion Gap BUN Creatinine Estimated GFR POC Glucose 171 H Random Glucose Lactic Acid 3.2 H Calcium Prot Corrected Calcium Phosphorus Magnesium Total Bilirubin AST ALT Alkaline Phosphatase Ammonia Lactate Dehydrogenase Total Creatine Kinase Troponin I Total Protein Albumin Amylase Lipase TSH Nasal Screen MRSA (PCR) Not detected 06/22/18 06/22/18 06/22/18 06:30 06:30 06:30 WBC 10.8 RBC 3.24 L Hgb 9.1 L D Hct 27.4 L MCV 84.7 MCH 28.0 MCHC 33.0 RDW 17.9 H Plt Count 452 H MPV 7.4 Prelim Diff (Auto) Neut % (Auto) 81.0 H Lymph % (Auto) 3.3 L [place] % (Auto) 15.7 H Eos % (Auto) 0.0 Baso % (Auto) 0.0 Neut # (Auto) 8.7 H Lymph # (Auto) 0.4 L [place] # (Auto) 1.7 H Eos # (Auto) 0.0 Baso # (Auto) 0.0 WBC Differential . Diff Scan Differential Comment Auto diff final PT 10.7 INR 1.1 APTT 25.0 D Fibrinogen 286 Sodium Potassium Chloride Carbon Dioxide Anion Gap BUN Creatinine Estimated GFR POC Glucose Random Glucose Lactic Acid Calcium Prot Corrected Calcium Phosphorus Magnesium Total Bilirubin AST ALT Alkaline Phosphatase Ammonia 15 Lactate Dehydrogenase Total Creatine Kinase Troponin I Total Protein Albumin Amylase Lipase TSH Nasal Screen MRSA (PCR) 06/22/18 06/22/18 06:30 06:30 WBC RBC Hgb Hct MCV MCH MCHC RDW Plt Count MPV Prelim Diff (Auto) Neut % (Auto) Lymph % (Auto) [place] % (Auto) Eos % (Auto) Baso % (Auto) Neut # (Auto) Lymph # (Auto) [place] # (Auto) Eos # (Auto) Baso # (Auto) WBC Differential Diff Scan Differential Comment PT INR APTT Fibrinogen Sodium 137 Potassium 3.5 D Chloride 96 L D Carbon Dioxide 28.4 Anion Gap 13 BUN 34 H Creatinine 0.66 Estimated GFR Greater than 89 POC Glucose Random Glucose 148 H Lactic Acid 1.2 Calcium 6.7 L* D Prot Corrected Calcium 7.2 L* Phosphorus 1.5 L Magnesium 2.8 H Total Bilirubin 1.1 H AST 64 H ALT 11 Alkaline Phosphatase 62 Ammonia Lactate Dehydrogenase 232 Total Creatine Kinase Troponin I Less than 0.02 L Total Protein 6.1 L D Albumin 2.7 L Amylase 132 H Lipase 100 TSH 0.291 L Nasal Screen MRSA (PCR) Imaging: Abdomen Ultrasound 06/21/18 00:00 CONCLUSION: 1. Positive for gallbladder sludge without gallbladder wall thickening and trace pericholecystic fluid. Cannot exclude mild cholecystitis. Common bile duct mildly dilated at 8 mm. 2. Small amount of ascites. Chest CT 06/21/18 00:00 CONCLUSION: 1. Extensive diffuse sclerotic osseous metastatic disease. 2. Moderate size left pleural effusion and smaller loculated right effusion. The right lateral component accounts for the pleural-based density seen on the plain film. There are no parenchymal masses. Chest X-Ray 06/21/18 17:00 CONCLUSION: 1. Large left-sided opacity likely representing pleural effusion with associated volume loss and/or airspace consolidation. 2. Suspected small pleural-based opacity inferiorly on the right could represent a pleural-based mass or pleural effusion. Objective Remarks: - Constitutional mild distress - Routine HEENT Exam Head: Present: normocephalic, atraumatic Eye: Present: EOMI, PERRL, normal accommodation ENT: Present: mucous membranes dry, oropharynx clear - Routine Chest/Breast/Axilla Exam Chest wall: Absent: tenderness Breast: Absent: tenderness Axillae: Present: lymphadenopathy - Routine Respiratory Exam Present: decreased breath sounds at bases L >R, crackles. Absent: accessory muscle use, wheezes - Routine Cardiovascular Exam Present: S1, S2, tachycardia. Absent: murmur - Routine Abdominal Exam Present: soft, tenderness, guarding. distended. Absent: rebound - Routine Extremities Exam Absent: cyanosis, clubbing, edema - Routine Skin Exam Present: intact - Routine Neurological Exam Present: alert, oriented X3, CN II-XII intact Assessment and Plan - Assessment and Plan Plan: Neuro/Psych: Acute toxic metabolic encephalopathy secondary to severe sepsis Acetaminophen 650 p.o. every 6 hours as needed fever Hydrocodone/acetaminophen 5/325 1 tablet every 4 as needed 1-5 Hydromorphone 1 g IV every 4 hours. Pain 6 - 10 CV: Sinus tachycardia Lactic acidosis Bolus 2 L normal saline in ED. Recheck lactate and follow trends until cleared Initial troponin negative. Recheck in a.m. Follow-up on EKG and limited 2D echocardiogram ordered Resp: Likely left pleural effusion CT thorax ordered. Likely need thoracentesis Recheck coags prior to initiation Currently on room air not emergent Incentives biometry every hour while awake Albuterol/ipratropium aerosols every 4 hours with albuterol aerosols every 2 hours as needed dyspnea GI: Nausea/vomiting Hypoalbuminemia Elevated AST Currently n.p.o. LFTs not grossly abnormal. Check lipase and amylase Pantoprazole for GI prophylaxis Docusate serum/senna 1 tablet twice daily for bowel regimen Check abdominal ultrasound with history of paracentesis We will obtain CT abdomen pelvis for further evaluation in view of nausea vomiting/abdominal pain. : Hadn catheter if indicated for accurate I's and O's in a critically ill patient Endo: Diabetes mellitus Sliding scale insulin Accu-Cheks to maintain euglycemia/low regimen with aspart insulin every 6 hours Check TSH Renal: Acute kidney injury Recheck BMP in a.m. 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 Follow trends. No indication for transfusion of blood products at this time. Transfuse to keep hemoglobin above 7 g percent ID: Severe sepsis received piperacillin/tazobactam and vancomycin ED. Renally dose antibiotics as above. Blood cultures 2 ordered. UA pending MSK: PT evaluate and treat FEN: Hypopotassemia Hyponatremia Hyper magnesium Replace electrolytes as clinically indicated 80 mEq KCl x1 now. Access -Utilize right Port-A-Cath. Prophylaxis -GI -pantoprazole -DVT-SCD/initiate subcutaneous heparin after thoracentesis
--- NOTE | 2018-06-22 09:43 | XR ---
EXAM DATE: 06/22/2018 9:40 AM EDT AGE/SEX: 62 years / Female INDICATIONS: Post left side thoracentesis. CLINICAL DATA: This is the patient's subsequent encounter. Patient reports that signs and symptoms h ave been present for 2 days and indicates a pain score of 3/10. MEDICAL/SURGICAL HISTORY: None. None. COMPARISON: C, CHEST 1V SINGLE AP, 06/21/2018. . FINDINGS: There is no pneumothorax following left thoracentesis. Significant reduction in amount of fluid on th e left. Persistent consolidative changes remain in the left and right bases, worse on the left. CONCLUSION: Negative for pneumothorax following thoracentesis. Electronically signed by: Landon Wilks MD 06/22/2018 9:42 AM EDT
[2018-06-22] MEDS ORDERED: Diatrizoate Meglum/Diatrizoate Sod Liq 9 ML UDC PO ONE (09:44)
[2018-06-22] MEDS ORDERED: Lidocaine PF 1% Inj 5 ML Vial ONE ×2 (09:56→09:57)
[2018-06-22 10:50] LABS: Total Protein,Pleural Fluid 4.9 gm/dL
[2018-06-22] MEDS: Vancomycin Inj 1,250 MG in Sodium Chlor 0.9% Inj 250 ML IV.SIG SCH ×2 (11:00→11:10)
--- NOTE | 2018-06-22 11:09 | US ---
EXAM DATE: 06/22/2018 9:47 AM EDT AGE/SEX: 62 years / Female INDICATIONS: Pleural effusion. CLINICAL DATA: This is the patient's initial encounter. Patient reports that signs and symptoms have been present for 3 weeks and indicates a pain score of Nonresponsive. MEDICAL/SURGICAL HISTORY: Carcinoma, breast. Diabetes. Mastectomy, left. Chemotherapy. Port-A- Catheter. COMPARISON: No prior exams available for comparison. FLUID: Total volume of 500 cc of . fluid was removed. Fluid was sent to lab for ordered studies. . . TECHNIQUE: Ultrasound guidance for thoracentesis. Thoracentesis. The risks, benefits, and alternatives to ultrasound guided thoracentesis were explained to the patien t in lay simple terms, including the risk of bleeding and infection. Written and verbal informed con sent was obtained. Appropriate area for left thoracentesis was marked under ultrasound guidance with the patient in the upright position. Overlying skin was prepped and draped in the usual sterile fashion and with local anesthetic, a dermatotomy was made with an 11 blade scalpel. A 6 Hebrew thoracentesis catheter was p laced in the pleural space and fluid was removed. Catheter was then removed and a sterile dressing a pplied. There were no immediate complications. The patient tolerated the procedure well and the left the ultrasound suite in stable condition. Chest radiograph is to be obtained. CONCLUSION: 1. Uncomplicated ultrasound-guided left thoracentesis. Electronically signed by: Lucas Padilla MD 06/22/2018 11:08 AM EDT
[2018-06-22 11:43] LABS: RBC,Pleural Fluid 506899 /mm3 (0-0)
[2018-06-22 11:44] LABS: Lymphocytes,Pleural Fluid 1 %; Mesothelial,Pleural Fluid 11 %; Neutrophils,Pleural Fluid 88 %
--- NOTE | 2018-06-22 13:47 | CT ---
EXAM DATE: 06/22/2018 1:41 PM EDT AGE/SEX: 62 years / Female INDICATIONS: Altered mental status. CLINICAL DATA: This is the patient's initial encounter. Patient reports that signs and symptoms have been present for 1 day and indicates a pain score of 0/10. MEDICAL/SURGICAL HISTORY: Carcinoma, breast. Diabetes. None. RADIATION DOSE: 56.35 CTDI (mGy) COMPARISON: No prior exams available for comparison. TECHNIQUE: CT of the head without contrast. Using automated exposure control and adjustment of the mA and/or kV according to patient size, radiation dose was kept as low as reasonably achievable to ob tain optimal diagnostic quality images. DICOM format image data is available electronically for revi ew and comparison. FINDINGS: There is central and cortical atrophy with dilatation of ventricular and sulcal spaces. There is no parenchymal hemorrhage, acute infarction or mass lesion identified. There are no extra-axial fluid c ollections appreciated. Periventricular white matter changes are noted. The posterior fossa is unrem arkable with midline fourth ventricle. The portion of the orbits and paranasal sinuses visualized are unremarkable. CONCLUSION: Atrophy, , poor lane-white matter differentiation; nonspecific, otherwise negative for a n acute process. Landon Wilks MD FACR . Electronically signed by: Landon Wilks MD 06/22/2018 1:46 PM EDT
--- NOTE | 2018-06-22 13:55 | CT ---
EXAM DATE: 06/22/2018 1:43 PM EDT AGE/SEX: 62 years / Female INDICATIONS: Diffuse abdominal pain. Evaluate for metastatic disease. CLINICAL DATA: This is the patient's initial encounter. Patient reports that signs and symptoms have been present for 1 day and indicates a pain score of 8/10. MEDICAL/SURGICAL HISTORY: Carcinoma, breast. Diabetes. None. RADIATION DOSE: 6.81 CTDI (mGy) COMPARISON: No prior exams available for comparison. TECHNIQUE: Multiple contiguous axial images were obtained through the abdomen. Images were obtained using multiple row detector helical technique. Using automated exposure control and adjustment of the mA and/or kV according to patient size, radiation dose was kept as low as reasonably achievable to o btain optimal diagnostic quality images. DICOM format image data is available electronically for rev iew and comparison. FINDINGS: Lower Lungs: Bilateral pleural effusions are noted. There is a large effusion on the left extending f rom the base of the hilum. Small effusion is noted on the right along the posterior pleural margin. Liver: The liver has a homogeneous density without space-occupying lesion. There is no dilation of th e biliary tree. Spleen: Homogeneous density without enlargement. Pancreas: Unremarkable without mass or calcification. Kidneys: Normal in size and shape. No evidence of mass or hydronephrosis. Adrenal Glands: Unremarkable. Aorta: The aorta and proximal iliac vessels are grossly unremarkable without aneurysmal dilation. Bowel/Mesentery: Generalized wall thickening is seen throughout the small intestinal tract. There is [id number] amount of ascites as well as stranding and thickening of the omentum. Colon is col lapsed and contains contrast and stool. Abdominal Wall: Intact. Retroperitoneum: No evidence of adenopathy in the retrocrural, para-aortic, or deep pelvic regions. Bladder: Contours are smooth. Reproductive Organs: No abnormal masses or calcifications seen. Inguinal: The inguinal region is unremarkable without evidence of adenopathy. Bony Structures: Sclerotic lesions are present throughout the osseous system. CONCLUSION: 1. Ascites with mesenteric and omental stranding and thickening characteristic of carcinomatosis. 2. Diffuse wall thickening of the small intestinal tract. 3. Bilateral pleural effusions with large cumulation of fluid on the left. 4. Sclerotic bone lesions characteristic of metastatic disease. Electronically signed by: Miguel Rosas MD 06/22/2018 1:54 PM EDT
[2018-06-22] MEDS ORDERED: Calcium Chloride Inj 1 GM in Sodium Chlor 0.9% Inj 100 ML IV.SIG ONE (14:00)
[2018-06-22] MEDS ORDERED: Potassium Phosphate Inj 30 MMOL in Sodium Chlor 0.9% Inj 250 ML IV.SIG ONE (15:00)
--- NOTE | 2018-06-22 15:52 | ECG ---
Date Performed: 06/21/2018 Time Performed: 18:12:19 PTAGE: 62 years EKG: SINUS TACHYCARDIA WITH SHORT ND INTERVAL INCOMPLETE RIGHT BUNDLE BRANCH BLOCK ST DEVIATION AND MODERATE T-WAVE ABNORMALITY, CONSIDER LATERAL ISCHEMIA ST DEVIATION AND MODERATE T-WAVE ABNORMALI TY, CONSIDER INFERIOR ISCHEMIA ABNORMAL ECG NO PREVIOUS TRACING Clinical correlation is recommended DOCTOR: Yossi Martinez Interpretating Date/Time 06/22/2018 15:52:13
[2018-06-22 16:47] LABS: Baso % (Auto) 0.1 % (0.0-2.0); Hematocrit 28.7 % (35.0-46.0); Hemoglobin 9.3 gm/dL (11.6-15.3); Lymph # (Auto) 0.4 th/mm3 (1.0-4.8); Mean Corpuscular HGB Conc 32.4 % (32.0-36.0); Mean Corpuscular Hemoglobin 27.8 pg (27.0-34.0); Mean Platelet Volume 7.7 fL (7.0-11.0); Mono # (Auto) 1.5 th/mm3 (0.0-0.9); Mono % (Auto) 11.9 % (0.0-8.0); Neut # (Auto) 10.5 th/mm3 (1.8-7.7); Platelet Count 469 th/mm3 (150-450); Red Blood Count 3.34 mil/mm3 (4.00-5.30); Red Cell Distribution Width 18.4 % (11.6-17.2); White Blood Count 12.4 th/mm3 (4.0-11.0)
--- NOTE | 2018-06-22 17:40 | P.CONPAL ---
Consult Service: Palliative Care Requesting Physician: Robert Huang Reason for Consult: a. To assist with evaluation and management of symptoms including: pain; nausea ; vomiting; generalized weakness b. To assist medical decision maker(s) with: better understanding of current medical conditions; weighing benefits/burdens of medical treatment options; making medical treatment decisions. Primary Care Provider: No Primary Care Physician History of Present Illness History of Present Illness: Ms. Damon is a 62 y/o Slovenian and Uzbeki speaking female from [facility] with a known history of metastatic breast cancer and diabetes mellitus who presented to the ED on 06/21/2018 for evaluation and management of refractory nausea/vomiting ; wekaness; and profound fatigue. Communication with the patient at time of my visit is challenged by her limited Belarusian and she has just recovered from an episode of complete unresponsiveness and remains groggy so even english language learner teacher assistance would not help. History is provided primarily by her . We have no medical records available for care prior to her arrival in the ED. Per , the patient was initially diagnosed with breast cancer in [facility] in 2005. She underwent left mastectomy at that time. She underwent ovarectomy in 2007. She moved to the in 2008. She did well until about one year ago when she was diagnosed with bone metastases. She was seen locally by Frank Fischer in [place] and received an unknown chemo agent from about 2017 through 05/2018. The patient has had difficulty with nausea and vomiting for many months. It is particularly bad when receiving chemo, but even when not receiving chem she gets nauseated and can have bilious type vomiting. This can happen daily. Up until recently, the nausea/vomiting was not enough to cause weight loss. Over the last weeks, the nausea/vomiting became quite severe. She did not want to take any of her medications because of the N/V and was even refusing pain medications. Because the nausea was so severe and because vomiting would briefly relieve the nausea, patient was also self-inducing vomiting by gagging her self with her finger. reports she was bringing up almost everything she consumed and said she has lost about 20 kg over the last 2 months. The treatment course of her disease is somewhat confusing as does not know the names of the agents used and some of the treatment was in [facility] and some here locally. The patient was back in [facility] earlier this summer. She had a paracentesis around 04/20/2018 which was complicated by peritonitis. The patient apparently feels that her GI symptoms became worse after that. She has had at least one other paracentesis locally. Her disease has also been complicated by pleural effusions. She has had two thoracenteses recently in [facility] and had a third one here earlier today. She gets quite SOB when the pleural effusions and/or ascites get large. does not know if either the ascitic fluid or pleural fluid was found to have cancer cells in it. The patient was just hospitalized about a week ago at [facility]. I believe she recevied some chemotherapy there as well. The patient has had some severe pain. reports that most of the pain is generalized abdominal pain and pain in the low back. Movement exacerbated both pain. Vomiting makes the pain worse. Abdominal pain is also worse with abdominal distension. Her opiate analgesics help the pain but she has not wanted to take them recently because she was concerned that the pain made her even more nauseated. Patient is unable to further quantify or qualify the pain. The analgesic regimen at home has consisted of either Tramadol (unknown dose) or oxycodone which the believes was a 5 mg tablet. the patient would take 5-10 mg of the oxycodone at a time and would have about 0 - 3 doses per day. The patient underwent left sided thoracentesis by interventional radiology earlier today. Apparently, hours later the patient was up in a chair without significant complaint and suddenly became completely unresponsive slumping sightly in her chair. Nurse reports that pulse, BP, and BS were unremarkable. Some nystagmus was noted at the time. An EEG was done but has not been interpreted. CT of the head was unremarkable. The patient was going to be intubated when she awoke spontaneously . At time of my visit, patient is somewhat groggy. She is complaining of abdominal pain. reports the patient has been ambivalent about her goals. There have been any times recently she has just asked to . On the other hand, yesterday using the translation service she said she would want an attempt at resuscitation if necessary. ROS -- a 12 point ROS was attempted using the patient's and limited records here. ROS notable for the following * Hearing is OK but vision has been declining. Wears glasses. * Has had the nausea/vomiting noted above, but no diarrhea. No blood in vomitus. No bloody stools. * Has SOB with pleural effusions. No phelgm production. No hemoptysis. * No chest pain. C/o rapid heart rate. * Urinary frequency without burning. * No cognitive changes. Past medical hx * Breast cancer * Diabetes Surgical history * Left mastectomy * ovariectomy Family History * Mother of Alzheimers disease * Father was estranged from family -- he is but his health history is unknown. * two brother and two sisters -- no significant illnesses. * No known family history of cancer; diabetes Since admission, patient has had fluid resucistation. She was started on broad spectrum antibiotics. Oncology was consulted. Multiple imaging studies have been performed. Blood culture has grown out Klebsiella. Function/Cognitive Trajectory: Patient was able to ambulate and get around the house up until May. Has declined substantially due to nausea/vomiting and progressive weight loss and weakness. says she has remained cognitively intact. . Review of Systems All other systems reviewed negative except as stated in HPI PMFSH - History History Provided By: Patient (ovarian and breast cancer that metastasized to bone per her , diabetes, port; Dr. Quinteros is her oncologist) - Medical History Medical History: Medical History (Last Updated 06/21/18 @ 18:58 by Guanako Herzog MD) Breast cancer Cancer Diabetes FHx: chemotherapy - Surgical History Surgical History: Surgical History (Last Updated 06/21/18 @ 18:58 by Guanako Herzog MD) Port-A-Cath in place (Acute) H/O left mastectomy - Family History Family History: Family History (Last Updated 06/21/18 @ 18:58 by Guanako Herzog MD) Other Family history non-contributory - Tobacco History Second Hand Smoke Exposure: No Tobacco Use In Past 30 Days: No Smoking Status: Never smoker - Alcohol History How Often Do You Have a Drink Containing Alcohol: Never - Substance Use History Substance History: No History of Abuse - Travel History Recent Travel in the [place] Within the Last 8 Weeks: No Recent Travel Out of the Country Within the Last 8 Weeks: No - Immunization History Tetanus Immunization: Unsure Hx Influenza Vaccine This Season: No Medications and Allergies Active Medications: Active Medications Acetaminophen (Tylenol) 650 mg PO Q6H PRN PRN Reason: FEVER >101F Hydrocodone Bitart/Acetaminophen ([place] 5/325) 1 tab PO Q4H PRN PRN Reason: PAIN SCALE 1 TO 5 Last Admin: 06/22/18 15:44 Dose: 1 tab Al Hydroxide/Mg Hydroxide (Milk Of Sulma Liq) 30 ml PO Q12H PRN PRN Reason: Mild Constipation Albuterol (Albuterol Neb (Prn)) 2.5 mg NEB Q2HR NEB PRN PRN Reason: SHORTNESS OF BREATH/WHEEZING Albuterol (Duoneb Neb (Elvis)) 1 ampul NEB Q4HR NEB ELVIS Last Admin: 06/22/18 15:59 Dose: 1 ampul Bisacodyl (Dulcolax Supp) 10 mg RECTAL DAILY PRN PRN Reason: SEVERE CONSITIPATION Chlorhexidine Gluconate (Chlorhexidine 2% Cloth) 3 pack TOPICAL DAILY@0400 ELVIS Stop: 06/27/18 03:59 Last Admin: 06/22/18 05:01 Dose: 3 pack Chlorhexidine Gluconate (Chlorhexidine 2% Cloth) 3 pack TOPICAL DAILY@0400 PRN PRN Reason: Extra cloth needed Stop: 06/27/18 03:59 Dextrose (D50w Vial) 50 ml IV.PUSH UNSCH PRN PRN Reason: PER HYPOGLYCEMIA PROTOCOL Glucagon (Glucagon Inj) 1 mg OTHER PRN PRN PRN Reason: for Hypoglycemia Protocol Hydromorphone HCl (Dilaudid Pf Inj) 1 mg IV.PUSH Q4H PRN PRN Reason: PAIN SCALE 6 TO 10 Sodium Chloride (Ns Inj) 1,000 mls @ 0 mls/hr IV.SIG BOLUS [facility] Last Admin: 06/21/18 18:17 Dose: 999 mls/hr Sodium Chloride (Ns Inj) 1,000 mls @ 84 mls/hr IV.CONT .[id number] [facility] Last Admin: 06/22/18 08:19 Dose: 84 mls/hr Norepinephrine Bitartrate 16 (mg/ Sodium Chloride) 250 mls @ 1.87 mls/hr IV.CONT TITRATE PRN; Protocol PRN Reason: See Protocol Magnesium Sulfate Inj 4 gm/ (Sodium Chloride) 100 mls @ 50 mls/hr IV.SIG UNSCH PRN PRN Reason: For Magnesium 0.9 - 1.1 mg/dL Magnesium Sulfate Inj 2 gm/ (Sodium Chloride) 100 mls @ 50 mls/hr IV.SIG UNSCH PRN PRN Reason: For Magnesium 1.2 - 1.6 mg/dL Potassium Chloride (Kcl 40 Meq Premix Inj) 40 meq in 100 mls @ 25 mls/hr IV.SIG Q2H PRN PRN Reason: For Potassium 2.8 - 3.2 mEq/L Potassium Chloride (Kcl 20 Meq Premix Inj) 20 meq in 100 mls @ 50 mls/hr IV.SIG Q2H PRN PRN Reason: For Potassium 3.3 - 3.5 mEq/L Potassium Chloride (Kcl 40 Meq Premix Inj) 40 meq in 100 mls @ 25 mls/hr IV.SIG UNSCH PRN PRN Reason: For Potassium 3.3 - 3.5 mEq/L Potassium Chloride (Kcl 20 Meq Premix Inj) 20 meq in 100 mls @ 50 mls/hr IV.SIG Q2H PRN PRN Reason: For Potassium 2.8 - 3.2 mEq/L Potassium Phosphate 30 mmol/ (Sodium Chloride) 260 mls @ 42 mls/hr IV.SIG UNSCH PRN PRN Reason: SEE LABEL COMMENTS Sodium Phosphate 30 mmol/ (Sodium Chloride) 260 mls @ 42 mls/hr IV.SIG UNSCH PRN PRN Reason: For Phosphorus < 2.5 mg/dL Piperacillin/Tazobactam/Dextrose (Zosyn 3.375 Gm Premix) 50 mls @ 100 mls/hr IV.SIG Q6H [facility] Last Admin: 06/22/18 17:06 Dose: 100 mls/hr Vancomycin HCl 1,250 mg/ (Sodium Chloride) 262.5 mls @ 250 mls/hr IV.SIG Q12H [facility] Last Infusion: 06/22/18 12:03 Dose: Infused Potassium Phosphate 30 mmol/ (Sodium Chloride) 260 mls @ 65 mls/hr IV.SIG NOW ONE Stop: 06/22/18 18:59 Last Admin: 06/22/18 14:23 Dose: 65 mls/hr Insulin Aspart (Novolog Insulin Correctional Sugar Inj) 0 unit SQ Q6HR [facility]; Protocol Last Admin: 06/22/18 12:30 Dose: Not Given Lactulose (Lactulose Liq) 30 ml PO DAILY PRN PRN Reason: SEVERE CONSITIPATION Magnesium Oxide (Mag-Ox) 800 mg PO UNSCH PRN PRN Reason: For Magnesium 1.2 - 1.6 mg/dL Miscellaneous Information ([facility] Ordered Lab Info) 0 each OTHER ONCE ONE Stop: 06/23/18 22:46 Ondansetron HCl (Zofran Inj) 4 mg IV.PUSH Q4H PRN PRN Reason: NAUSEA OR VOMITING Last Admin: 06/22/18 10:11 Dose: 4 mg Pantoprazole Sodium (Protonix Inj) 40 mg IV.PUSH DAILY [facility] Last Admin: 06/22/18 08:20 Dose: 40 mg Pharmacy Profile Note (Vancomycin Consult Pharmacy) 1 each OTHER UNSCH PRN PRN Reason: Pharmacy to dose Potassium Bicarb/Potassium Chloride (K-Lyte Cl Eff) 50 meq PO UNSCH PRN PRN Reason: For Potassium 3.3 - 3.5 mEq/L Potassium Phosphate (K-Phos Original) 2,000 mg PO Q4H PRN PRN Reason: Phosphorus Less Than 2.5 mg/dL Potassium Phosphate (K-Phos Original) 2,000 mg PO UNSCH PRN PRN Reason: SEE LABEL COMMENTS Promethazine HCl (Phenergan Inj) 25 mg IV.CENTRAL Q6H PRN PRN Reason: BREAKTHROUGH NAUSEA Last Admin: 06/22/18 01:42 Dose: 25 mg Senna/Docusate Sodium (Marisa-Colace) 1 tab PO BID [facility] Last Admin: 06/22/18 08:20 Dose: Not Given Sennosides (Senokot) 17.2 mg PO Q12H PRN PRN Reason: Moderate Constipation Sodium Chloride (Ns Flush) 2 ml IV.FLUSH BID [facility] Last Admin: 06/22/18 08:20 Dose: 2 ml Sodium Chloride (Ns Flush) 2 ml IV.FLUSH PRN PRN PRN Reason: FLUSH AFTER USING IV ACCESS Terbutaline Sulfate (Brethine Inj) 1 mg SQ UNSCH PRN PRN Reason: For Extravasation Allergies Allergy/AdvReac Type Severity Reaction Status Date / Time No Known Allergies Allergy Unverified 06/21/18 17:33 Home Medications Medication Instructions Recorded Confirmed Type Unable to Obtain Home Meds 06/21/18 06/21/18 History Advance Directives Living Will: No Healthcare Surrogate: No Documented care wishes: No written documentation of health care goals / preferences. . Today's verbally stated goals: Patient unable to verbally state health care goals/preferences at time of my visit. . Family/friends goals: is ambivalent about goals. If there are treatments that can help make her better he wants to try them. However, he does not want to prolong her suffering. Both of them were hoping they could get her back to [facility] where she would want to . . Ethical and Legal Issues: Patient is incapacitated at time of my visit, but has a high probability of recovering capacity. . Physical Exam Vital Signs: Vital Signs - 24 hr 06/21/18 17:34 06/21/18 17:42 06/21/18 17:43 Temperature 97.6 F Pulse Rate 144 H 135 H Respiratory Rate 22 24 Blood Pressure 102/59 L Pulse Oximetry 97 98 98 06/21/18 20:25 06/21/18 20:31 06/21/18 21:00 Temperature 98.8 F Pulse Rate 127 H 128 H Respiratory Rate 28 H 15 Blood Pressure 101/68 Pulse Oximetry 99 100 100 06/21/18 22:00 06/21/18 22:13 06/21/18 22:30 Temperature Pulse Rate 127 H 126 H 128 H Respiratory Rate 25 H 23 17 Blood Pressure 114/72 103/66 Pulse Oximetry 100 99 06/21/18 23:00 06/21/18 23:30 06/22/18 00:00 Temperature Pulse Rate 124 H 123 H 123 H Respiratory Rate 28 H 9 L 24 Blood Pressure 106/65 104/66 101/59 L Pulse Oximetry 100 100 100 06/22/18 00:30 06/22/18 01:00 06/22/18 01:31 Temperature Pulse Rate 118 H 125 H 119 H Respiratory Rate 21 15 27 H Blood Pressure 100/61 110/65 116/82 Pulse Oximetry 100 100 100 06/22/18 02:00 06/22/18 02:30 06/22/18 03:00 Temperature Pulse Rate 124 H 122 H 121 H Respiratory Rate 24 27 H 27 H Blood Pressure 101/66 101/68 106/65 Pulse Oximetry 100 100 98 06/22/18 03:30 06/22/18 04:00 06/22/18 04:09 Temperature Pulse Rate 118 H 120 H 114 H Respiratory Rate 27 H 25 H 22 Blood Pressure 104/67 107/71 Pulse Oximetry 100 100 06/22/18 04:30 06/22/18 05:00 06/22/18 05:30 Temperature Pulse Rate 123 H 122 H 123 H Respiratory Rate 28 H 26 H 27 H Blood Pressure 114/69 110/69 109/70 Pulse Oximetry 100 100 100 06/22/18 06:00 06/22/18 07:57 06/22/18 08:00 Temperature Pulse Rate 124 H 115 H 120 H Respiratory Rate 24 20 Blood Pressure 117/74 Pulse Oximetry 100 99 06/22/18 08:38 06/22/18 09:00 06/22/18 09:15 Temperature 99.1 F Pulse Rate 122 H 116 H 130 H Respiratory Rate 24 24 Blood Pressure 118/77 86/63 L Pulse Oximetry 100 100 06/22/18 09:38 06/22/18 10:00 06/22/18 11:00 Temperature 98.9 F Pulse Rate 113 H 117 H 121 H Respiratory Rate 24 19 17 Blood Pressure 104/74 118/71 119/76 Pulse Oximetry 99 100 99 06/22/18 11:52 06/22/18 12:00 06/22/18 13:00 Temperature Pulse Rate 130 H 135 H 134 H Respiratory Rate 27 H 17 17 Blood Pressure 107/72 119/79 Pulse Oximetry 100 100 06/22/18 14:00 06/22/18 15:00 06/22/18 16:00 Temperature Pulse Rate 135 H 126 H 129 H Respiratory Rate 17 18 18 Blood Pressure 117/79 128/89 118/78 Pulse Oximetry 96 98 98 06/22/18 17:00 Temperature Pulse Rate 135 H Respiratory Rate 18 Blood Pressure 113/79 Pulse Oximetry 96 I&O: Intake & Output 06/20/18 06/21/18 06/22/18 06/23/18 06:59 06:59 06:59 06:59 Intake Total 1250 / 1250 1472.5 / 1472.5 Balance 1250 / 1250 1472.5 / 1472.5 Weight 63.503 kg Physical Exam: CONSTITUTIONAL/GENERAL: This is an adequately nourished patient. She is having a difficult time getting comfortable in her MICU bed. Not smiling. TUBES/LINES/DRAINS: right chest port. No freeman SKIN: No jaundice, rashes, or lesions. No wounds seen anteriorly. Skin temperature appropriate. Not diaphoretic. HEAD: Atraumatic. Normocephalic. EYES: Pupils equal and round and reactive. Extraocular motions intact. No scleral icterus. No injection or drainage. Fundi not examined. ENT: Hearing grossly normal. Nose without bleeding or purulent drainage. Throat without visible erythema, exudates, masses, or lesions. NECK: Trachea midline. Supple, nontender. No palpable thyroid enlargement or nodularity. CARDIOVASCULAR: Tachycardic with regular rhythm without murmurs, gallops, or rubs. No JVD. Peripheral pulses symmetric. RESPIRATORY/CHEST: Symmetric, unlabored respirations. Breath sounds equal bilaterally but diminished at bases. . No wheezes, rales, or rhonchi. GASTROINTESTINAL: Abdomen firm, distended, generalized tenderness. No hepato- splenomegaly, or palpable masses but difficult to assess due to level of distension. . No guarding. Bowel sounds present. GENITOURINARY: Without palpable bladder distension. MUSCULOSKELETAL: Extremities without clubbing, cyanosis, or edema. No joint tenderness or effusion noted. No calf tenderness. No mottling . LYMPHATICS: No palpable cervical or supraclavicular adenopathy. NEUROLOGICAL: Groggy. Answers a few simple questions ,but drifts off. Does not want to be bothered. Follows a few simple commands. Moves all extremities. PSYCHIATRIC: Depressed affect. no apparent hallucinations or other psychotic thought process. . Diagnostic Tests Laboratory: Laboratory Results - last 72 hr 06/21/18 06/21/18 06/21/18 17:10 17:10 17:10 WBC 16.9 H RBC 4.29 Hgb 11.9 Hct 36.4 MCV 84.8 MCH 27.8 MCHC 32.8 RDW 18.5 H Plt Count 572 H MPV 8.1 Prelim Diff (Auto) Slide review pending Neut % (Auto) 84.4 H Lymph % (Auto) 2.6 L Simpson % (Auto) 13.0 H Eos % (Auto) 0.0 Baso % (Auto) 0.0 Neut # (Auto) 14.3 H Lymph # (Auto) 0.4 L Simpson # (Auto) 2.2 H Eos # (Auto) 0.0 Baso # (Auto) 0.0 WBC Differential . Diff Scan Auto diff confirmed Differential Comment . PT 11.3 INR 1.1 APTT 147.3 H* Fibrinogen Sodium 129 L Potassium 2.6 L* Chloride 84 L Carbon Dioxide 28.6 Anion Gap 16 H BUN 44 H Creatinine 1.37 H Estimated GFR 39 L POC Glucose Random Glucose 233 H Lactic Acid Calcium 7.6 L Prot Corrected Calcium Phosphorus Magnesium 2.9 H Total Bilirubin 1.0 AST 53 H ALT 11 Alkaline Phosphatase 88 Ammonia Lactate Dehydrogenase Total Creatine Kinase 58 Troponin I Less than 0.02 L Total Protein 6.9 Albumin 2.4 L Amylase Lipase TSH Pleural pH Pleural RBC Pleural Nuc Cells Pleural Neutrophils Pleural Lymphocytes Pleural Mesothelial Pleural Fluid Comment Pleural Total Protein Pleural LDH Pleural Glucose Nasal Screen MRSA (PCR) 06/21/18 06/21/18 06/22/18 17:10 20:00 05:01 WBC RBC Hgb Hct MCV MCH MCHC RDW Plt Count MPV Prelim Diff (Auto) Neut % (Auto) Lymph % (Auto) Simpson % (Auto) Eos % (Auto) Baso % (Auto) Neut # (Auto) Lymph # (Auto) Simpson # (Auto) Eos # (Auto) Baso # (Auto) WBC Differential Diff Scan Differential Comment PT INR APTT Fibrinogen Sodium Potassium Chloride Carbon Dioxide Anion Gap BUN Creatinine Estimated GFR POC Glucose 171 H Random Glucose Lactic Acid 3.2 H Calcium Prot Corrected Calcium Phosphorus Magnesium Total Bilirubin AST ALT Alkaline Phosphatase Ammonia Lactate Dehydrogenase Total Creatine Kinase Troponin I Total Protein Albumin Amylase Lipase TSH Pleural pH Pleural RBC Pleural Nuc Cells Pleural Neutrophils Pleural Lymphocytes Pleural Mesothelial Pleural Fluid Comment Pleural Total Protein Pleural LDH Pleural Glucose Nasal Screen MRSA (PCR) Not detected 06/22/18 06/22/18 06/22/18 06:30 06:30 06:30 WBC 10.8 RBC 3.24 L Hgb 9.1 L D Hct 27.4 L MCV 84.7 MCH 28.0 MCHC 33.0 RDW 17.9 H Plt Count 452 H MPV 7.4 Prelim Diff (Auto) Neut % (Auto) 81.0 H Lymph % (Auto) 3.3 L Simpson % (Auto) 15.7 H Eos % (Auto) 0.0 Baso % (Auto) 0.0 Neut # (Auto) 8.7 H Lymph # (Auto) 0.4 L Simpson # (Auto) 1.7 H Eos # (Auto) 0.0 Baso # (Auto) 0.0 WBC Differential . Diff Scan Differential Comment Auto diff final PT 10.7 INR 1.1 APTT 25.0 D Fibrinogen 286 Sodium Potassium Chloride Carbon Dioxide Anion Gap BUN Creatinine Estimated GFR POC Glucose Random Glucose Lactic Acid Calcium Prot Corrected Calcium Phosphorus Magnesium Total Bilirubin AST ALT Alkaline Phosphatase Ammonia 15 Lactate Dehydrogenase Total Creatine Kinase Troponin I Total Protein Albumin Amylase Lipase TSH Pleural pH Pleural RBC Pleural Nuc Cells Pleural Neutrophils Pleural Lymphocytes Pleural Mesothelial Pleural Fluid Comment Pleural Total Protein Pleural LDH Pleural Glucose Nasal Screen MRSA (PCR) 06/22/18 06/22/18 06/22/18 06:30 06:30 09:18 WBC RBC Hgb Hct MCV MCH MCHC RDW Plt Count MPV Prelim Diff (Auto) Neut % (Auto) Lymph % (Auto) Simpson % (Auto) Eos % (Auto) Baso % (Auto) Neut # (Auto) Lymph # (Auto) Simpson # (Auto) Eos # (Auto) Baso # (Auto) WBC Differential Diff Scan Differential Comment PT INR APTT Fibrinogen Sodium 137 Potassium 3.5 D Chloride 96 L D Carbon Dioxide 28.4 Anion Gap 13 BUN 34 H Creatinine 0.66 Estimated GFR Greater than 89 POC Glucose Random Glucose 148 H Lactic Acid 1.2 Calcium 6.7 L* D Prot Corrected Calcium 7.2 L* Phosphorus 1.5 L Magnesium 2.8 H Total Bilirubin 1.1 H AST 64 H ALT 11 Alkaline Phosphatase 62 Ammonia Lactate Dehydrogenase 232 Total Creatine Kinase Troponin I Less than 0.02 L Total Protein 6.1 L D Albumin 2.7 L Amylase 132 H Lipase 100 TSH 0.291 L Pleural pH 7.5 Pleural RBC Pleural Nuc Cells Pleural Neutrophils Pleural Lymphocytes Pleural Mesothelial Pleural Fluid Comment Pleural Total Protein 4.9 Pleural LDH 595 Pleural Glucose 16 Nasal Screen MRSA (PCR) 06/22/18 06/22/18 06/22/18 09:22 11:51 16:00 WBC 12.4 H RBC 3.34 L Hgb 9.3 L Hct 28.7 L MCV 86.0 MCH 27.8 MCHC 32.4 RDW 18.4 H Plt Count 469 H MPV 7.7 Prelim Diff (Auto) Neut % (Auto) 85.0 H Lymph % (Auto) 3.0 L Simpson % (Auto) 11.9 H Eos % (Auto) 0.0 Baso % (Auto) 0.1 Neut # (Auto) 10.5 H Lymph # (Auto) 0.4 L Simpson # (Auto) 1.5 H Eos # (Auto) 0.0 Baso # (Auto) 0.0 WBC Differential . Diff Scan Differential Comment Auto diff final PT INR APTT Fibrinogen Sodium Potassium Chloride Carbon Dioxide Anion Gap BUN Creatinine Estimated GFR POC Glucose 158 H Random Glucose Lactic Acid Calcium Prot Corrected Calcium Phosphorus Magnesium Total Bilirubin AST ALT Alkaline Phosphatase Ammonia Lactate Dehydrogenase Total Creatine Kinase Troponin I Total Protein Albumin Amylase Lipase TSH Pleural pH Pleural RBC 066332 H Pleural Nuc Cells 7343 H Pleural Neutrophils 88 Pleural Lymphocytes 1 Pleural Mesothelial 11 Pleural Fluid Comment Pleural Total Protein Pleural LDH Pleural Glucose Nasal Screen MRSA (PCR) 06/22/18 17:15 WBC RBC Hgb Hct MCV MCH MCHC RDW Plt Count MPV Prelim Diff (Auto) Neut % (Auto) Lymph % (Auto) Simpson % (Auto) Eos % (Auto) Baso % (Auto) Neut # (Auto) Lymph # (Auto) Simpson # (Auto) Eos # (Auto) Baso # (Auto) WBC Differential Diff Scan Differential Comment PT INR APTT Fibrinogen Sodium Potassium Chloride Carbon Dioxide Anion Gap BUN Creatinine Estimated GFR POC Glucose 158 H Random Glucose Lactic Acid Calcium Prot Corrected Calcium Phosphorus Magnesium Total Bilirubin AST ALT Alkaline Phosphatase Ammonia Lactate Dehydrogenase Total Creatine Kinase Troponin I Total Protein Albumin Amylase Lipase TSH Pleural pH Pleural RBC Pleural Nuc Cells Pleural Neutrophils Pleural Lymphocytes Pleural Mesothelial Pleural Fluid Comment Pleural Total Protein Pleural LDH Pleural Glucose Nasal Screen MRSA (PCR) Result Diagrams: 06/22/18 16:00 06/22/18 06:30 Microbiology: Microbiology 06/22/18 09:18 Gram Stain - Final Fluid - Pleural fluid 06/22/18 09:18 Fungal Smear - Final Fluid - Pleural fluid No fungal elements seen 06/21/18 17:15 Aerobic Blood Culture - Preliminary Blood - Peripheral Klebsiella pneumoniae Anaerobic Blood Culture - Preliminary No growth in 1 day 06/21/18 17:45 Aerobic Blood Culture - Preliminary Blood - Peripheral No growth in 1 day Anaerobic Blood Culture - Preliminary gram negative rods Imaging: Abdomen Ultrasound 06/21/18 00:00 CONCLUSION: 1. Positive for gallbladder sludge without gallbladder wall thickening and trace pericholecystic fluid. Cannot exclude mild cholecystitis. Common bile duct mildly dilated at 8 mm. 2. Small amount of ascites. Chest CT 06/21/18 00:00 CONCLUSION: 1. Extensive diffuse sclerotic osseous metastatic disease. 2. Moderate size left pleural effusion and smaller loculated right effusion. The right lateral component accounts for the pleural-based density seen on the plain film. There are no parenchymal masses. Chest X-Ray 06/21/18 17:00 CONCLUSION: 1. Large left-sided opacity likely representing pleural effusion with associated volume loss and/or airspace consolidation. 2. Suspected small pleural-based opacity inferiorly on the right could represent a pleural-based mass or pleural effusion. Abdomen/Pelvis CT 06/22/18 00:00 CONCLUSION: 1. Ascites with mesenteric and omental stranding and thickening characteristic of carcinomatosis. 2. Diffuse wall thickening of the small intestinal tract. 3. Bilateral pleural effusions with large cumulation of fluid on the left. 4. Sclerotic bone lesions characteristic of metastatic disease. Chest X-Ray 06/22/18 00:00 CONCLUSION: Negative for pneumothorax following thoracentesis. Head CT 06/22/18 00:00 CONCLUSION: Atrophy, , poor lane-white matter differentiation; nonspecific, otherwise negative for an acute process. Landon Wilks MD FACR . Thoracentesis Ultrasound 06/22/18 00:00 CONCLUSION: 1. Uncomplicated ultrasound-guided left thoracentesis. Procedures: Left sided thoracentesis 06/22/18 Patient/Family Conference Present at Family Conference: Spouse Family Conference Time: 50 Family Conference Location: Bedside, Hallway Issues Discussed: * Palliative care role, purpose, approach * Additional medical, psychosocial, and spiritual history * Patients general health, functional status, and cognitive changes in the months leading up to the current hospitalization * Family understanding of the current medical problems * Family understanding of prognosis * Patients goals of care as best understood from conversations and/or values * Current medical treatment options and benefits/burdens of those options * Likely scenarios comparing ongoing aggressive care with a transition to comfort measures only * Questions answered to the best of my ability * Palliative care contact information provided Assessment and Plan - Disease Oriented Problem List (1) Breast cancer metastasized to bone (2) Carcinomatosis (3) Sepsis Comment: Klebsiella is growing out of blood (4) Pleural effusion (5) Diabetes mellitus (6) Acute renal insufficiency (7) Hypocalcemia (8) Anemia (9) Hypoalbuminemia - Symptom Scale (1) Pain 0-10 Scale: Unable to quantify (2) Nausea & vomiting 0-10 Scale: 10 (3) Fatigue 0-10 Scale: 10 Pertinent Non-Medical Issues: Psychosocial: [employer] [place]. Speaks Slovenian and Trin[place]adian. in 1979. 3 children -- Son 35; daughters 32 and 23. Has lived in [place] since 2008. Patient is a University graduate in history. 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 Spiritual: Moslem. Legal: No advance directives. would be legal proxy decision maker. Ethical issues impacting care: Important Contacts: Nathaly Damon (spouse and proxy) [phone] . Prognosis: We don't have old records, but patient appears to have widely metstatic breast cancer (bones, carcinomatosis with likely malignant ascites, likely malignant pleural effusions). She is not tolerating chemo and has a poor functional status from refractory nausea/vomiting as well as sepsis. If she is not a candidate for further cancer directed treatments, she would be very appropriate for hospice care. /. Code Status: Full Code (Once we hear more about prognosis and options from oncology will re-approach code status.) Plan: Code Status: FULL CODE for now. We will re-visit code status once oncology weighs in on prognonsis and options. Patients chances of regaining meaningful quality of life should she suffer a cardiac and/or respiratory arrest are very small. Decision making: Patient is groggy after having a period of unresponsiveness for unknown reason. It is expected she will recover independent decision making. Goals of medical treatment: Patient has been ambivalent about her goals. There are many times she asks her to be allowed to . There are other times when she wishes to continue fighting. She apparently declined DNR status. Symptoms: * Nausea/vomiting: Cause of this is unclear. I am uncertain what chemotherapy she may have had while recently hospitalized at [facility]. She may also be reacting to recent antibiotics. N/V may be a direct effect of metastatic disease with carcinomatosis. CT imaging also reveals thickening of the small bowel wall. Unclear to what extent nausea/vomiting may also be exacerbated by opioids. Does not appear obstructed. * Pain: Patient was unable to quantify or qualify pain. Has abdominal pain which is likely due to ascites and possibly to metastatic disease itself. Frequent vomiting is likely also contributing to pain in muscles. Has low back pain likely due to gina mets. * Ascites: This is likely malignant ascites. This will not likely respond to diuretics. If there are no cancer directed therapies available and hospice is being considered, may want to consider an indwelling peritoneal drain. * SOB : This is proportional to severity of pleural effusions * Tachycardia : Probably related to dehydration and to sepsis. Will hopefully improve as these are addressed. * Episode of unresponsiveness: Etiology is unclear. Await EEG. Did not appear to be BP or heart rhythm related or blood sugar related. PLAN * Have spoken with Dr. Iniguez our inbound sales consultant. He will try to contact Dr. Hudson Fischer personally to get additional information on patient. This may give us a better idea of prognosis and what treatment options, if any might still be available. * Once we have a sense of options and prognoses, will re-address code status and goals of medical treatment with patient (if she is more awake) and employee benefits director help. * If a transition to comfort measures appears appropriate, patient is a good candidate for hospice care. * May want to consider low dose IV steroid -- e.g. 2 mg of dexamethasone QAM. This will likely help pain and nausea and mood. Her stomach should be in part protected by her PPI. * Patient would likely benefit from low dose lorazepam -- even 0.25 to 0.5 mg IV q 6 hours prn. * If nausea remains refractory, would recommend haloperidol 0.5 mg sq or iv q 8 hours ATC until nausea improves. * Continue antibiotics for sepsis. * Await EEG results to see if episode of unresponsiveness may have been due to seizure. == Palliative care will continue to follow to assist with symptom management and to further clarify goals of medical treatment as the clinical course evolves. Appreciation Thank you for the opportunity to participate in the care of Cosmo Damon. Attestation Attestation: To help prompt me to consider important information that might be impacting today's encounter and assessment, information from prior notes written by myself or my colleagues may have been "brought forward" into today's note. My signature on this note, however, is an attestation that I personally performed the exam, history, and/or decision-making noted today, and, unless otherwise indicated, the interactions with patient, family, and staff as well as the review of records all occurred today. I also attest that the listed assessment and stated plan reflect my best clinical judgment today based on the combination of historical information, prior notes, and today's exam/ interactions. When time spent is documented, it refers only to time spent today by the signer, or if indicated, combined time spent today by collaborating physician/nurse practitioner. .
--- NOTE | 2018-06-22 17:58 | ECHRPT ---
Indication: Heart Failure CONCLUSIONS Technically difficult study with limited echocardiographic window visualization. Sinus tachycardia throughout study. There is a large pericardial effusion present. Tamponade physiology cannot be ruled out with the cur rent study. Mitral and tricuspid inflow evaluation was not completed during this study, and the right gonzalo tricle and right atrium are poorly visualized. The left ventricular systolic function is low normal with an estimated ejection fraction in the rang e of 50- 55%. There is trace tricuspid valve regurgitation. The estimated pulmonary arterial pressure is 46 mmHg. Attending physician, Dr Huang was notified of critical study findings at 5:47pm. BP: / HR: Rhythm: MEASUREMENTS (Male / Female) Normal Values Technical Quality:Technically difficult study 2D ECHO LV Diastolic Diameter PLAX 3.5 cm 4.2 - 5.9 / 3.9 - 5.3 cm LV Systolic Diameter PLAX 2.6 cm IVS Diastolic Thickness 1.0 cm 0.6 - 1.0 / 0.6 - 0.9 cm LVPW Diastolic Thickness 1.0 cm 0.6 - 1.0 / 0.6 - 0.9 cm LV Relative Wall Thickness 0.5 RV Internal Dim ED PLAX 2.5 cm LVOT Diameter 1.9 cm Aortic Root Diameter 2.4 cm LA Systolic Diameter LX 2.2 cm 3.0 - 4.0 / 2.7 - 3.8 cm M-MODE AV Cusp Separation MM 1.9 cm DOPPLER AV Peak Velocity 133.0 cm/s AV Peak Gradient 7.1 mmHg LVOT Peak Velocity 118.0 cm/s LVOT Peak Gradient 5.6 mmHg AV Area Cont Eq pk 2.5 cm Mitral E Point Velocity 73.5 cm/s Mitral A Point Velocity 115.0 cm/s Mitral E to A Ratio 0.6 LV E' Lateral Velocity 6.2 cm/s Mitral E to LV E' Lateral Ratio 11.8 LV E' Septal Velocity 4.2 cm/s Mitral E to LV E' Septal Ratio 17.5 TR Peak Velocity 300.0 cm/s TR Peak Gradient 36.0 mmHg Right Atrial Pressure 10.0 mmHg Pulmonary Artery Systolic Pressu 46.0 mmHg Right Ventricular Systolic Press 46.0 mmHg PV Peak Velocity 136.0 cm/s PV Peak Gradient 7.4 mmHg FINDINGS LEFT VENTRICLE Normal left ventricular size. Wall thickness is normal. The left ventricular systolic function is low normal with an estimated ejection fraction in the rang e of 50- 55%. RIGHT VENTRICLE The right ventricle was not well visualized. LEFT ATRIUM The left atrial size is normal. RIGHT ATRIUM The right atrium is not well visualized. ATRIAL SEPTUM Normal atrial septal thickness without atrial level shunting by limited color doppler interrogation. AORTA The aortic root and proximal ascending aorta are normal in size on limited imaging. MITRAL VALVE Structurally normal mitral valve. No mitral valve stenosis or regurgitation. AORTIC VALVE Trileaflet aortic valve. TRICUSPID VALVE The tricuspid valve is not well visualized. There is trace tricuspid valve regurgitation. The estimated pulmonary arterial pressure is 46 mmHg. PULMONARY VALVE No pulmonary valve regurgitation or stenosis. VESSELS The inferior vena cava was not well visualized. PERICARDIUM There is large pericardial effusion present. Jaiden Myers (Electronically Signed) Final Date:22 June 2018 17:57
[2018-06-22] MEDS ORDERED: Albumin Human 5% Inj 500 ML IV.SIG ONE (19:30)
--- NOTE | 2018-06-22 21:38 | MG ---
cc: Bertrand Kuo MD ELECTROENCEPHALOGRAM RECORD NUMBER: [id number] DESCRIPTION: The background activity showed sleep state with theta Activity. A lot of frontal high frequency artifact and myogenic artifact at times. Bursts of episodic 2-3 Hz delta activity. Reduced driving with photic stimulation. INTERPRETATION: Minimal encephalopathy and artifact. No clear epileptic activity. Clinical correlation. MD MIRNA Grady/erika , 09:08 PM , 09:15 PM
[2018-06-23] MEDS: Insulin NovoLOG Aspart Correctional Sugar Inj SQ SCH ×2 (01:01→06:37)
--- NOTE | 2018-06-23 01:02 | MB ---
cc: Marla Iniguez MD DATE: 06/22/2018 REASON FOR CONSULTATION: Consult requested by hospital nurse liaison for evaluation and management of metastatic breast cancer. HISTORY OF PRESENT ILLNESS: Cosmo is a 62-year-old female. She does not speak Malawian. Her primary language is Nicaraguan. The patient is under the care of Dr. Iris Quinteros at [facility]. (The records need to be corrected as it mention that the patient was under the care of oncologist, Dr. Deonte Quinteros). We do not have any records available from her oncologist at [facility]. She has been under the care of Dr. Iris Quinteros and not Dr. Deonte Quinteros. The patient was brought into the emergency room yesterday as she was complaining of intractable nausea, vomiting and extreme fatigue. She was hypotensive when the paramedics arrived at home. The patient was given fluid challenge and her blood pressure improved. It was suspected that the patient could have sepsis and she is now admitted by the hospital nurse liaison. She is on the antibiotics vancomycin and piperacillin/tazobactam. She had a chest x-ray, which showed a large left pleural effusion and a pleural-based mass on the right side. The patient was sent to interventional radiologist for thoracentesis. She has tolerated the procedure well and she just came back from the radiology suite to her intensive care bed. When I start talking to her, she stated that her knows "everything." She does not know much about her history. Her was not present at the bedside. I was able to brian him down into the CICU waiting room. According to the patient's , she was diagnosed with left breast cancer in 2005. She underwent left modified radical mastectomy. Subsequently, she had oophorectomy also. The details of those are not available. The patient's does not remember much detail about it either. The patient was found to have extensive bone metastasis about a year ago. She has been under some unknown treatment. She also had been having recurrent pleural effusion and ascites. The patient had undergone paracentesis and thoracentesis all at [facility]. The patient had thoracentesis today for the first time here at [place]. The results of those are still pending. REVIEW OF SYSTEMS: Not possible due to the patient's language barrier. PAST MEDICAL HISTORY: Metastatic breast cancer, diabetes. PAST SURGICAL HISTORY: Infusaport placement, left modified radical mastectomy, bilateral oophorectomy. ALLERGIES: NONE. MEDICATIONS: Unable to obtain, but please see EMR for her current medications. FAMILY HISTORY: Unable to obtain. SOCIAL HISTORY: Unable to obtain. PHYSICAL EXAMINATION: GENERAL: A chronically ill-appearing, cachectic white female in no apparent distress. VITAL SIGNS: Temperature 99.1, heart rate is 122, respiratory rate 24, blood pressure 118/77. HEENT: Bitemporal wasting noted. No oral lesions noted. NECK: No lymphadenopathy. LUNGS: Decreased breath sounds on the left side. HEART: Tachycardic with no murmur. ABDOMEN: Soft, diffuse tenderness noted. EXTREMITIES: No pedal edema. NEUROLOGIC: Awake, alert. SKIN: No significant lesions noted. ASSESSMENT: 1. Intractable nausea and vomiting resulting in severe hypotension. This is most likely due to the chemotherapy and/or peritoneal metastasis from breast cancer. 2. Recurrent pleural effusion, most likely malignant, status post thoracentesis. 3. Malignant ascites, status post paracentesis previously. 4. Metastatic left breast cancer, currently on unknown chemotherapy. 5. Gram negative sepsis, on antibiotics. PLAN: I have reviewed her available records. Unfortunately, we do not have any records about her breast cancer treatment. I do not know what her disease status is. I do not know how many lines of hormonal treatment or chemotherapy that she has received so far. Her also does not remember all the details. He told me that I should be able to get it from the computer. I told him that we do not have access to [facility] computer. I will speak to her primary oncologist, Dr. Iris Quinteros when I will get the chance. At this time, no acute oncology intervention is required. The patient needed to be supported for her symptoms. She has been on antiemetics, antibiotics and her hypotension has improved with fluid resuscitation. She just came back from the radiology suite after the thoracentesis. The results of those are still pending. Further recommendations to follow. Thank you for asking my opinion. MD DIAMANTE Chavez/paula , 11:54 PM , 12:15 AM DAHIANA
[2018-06-23] MEDS: Piperacil/Tazo 3.375 GM Premix 50 ML IV.SIG SCH ×2 (01:39→06:37)
[2018-06-23] MEDS: Vancomycin Inj 1,250 MG in Sodium Chlor 0.9% Inj 250 ML IV.SIG SCH (01:39)
[2018-06-23] MEDS: Sod Chloride 0.9% Inj 1,000 ML IV.CONT SCH ×2 (02:00→06:45)
[2018-06-23] MEDS: Chlorhexidine Gluconate 2% 1 Pack (2 Cloths) TOPICAL SCH (03:36)
[2018-06-23 05:01] VITALS: TEMP 98.8
--- NOTE | 2018-06-23 05:42 | XR ---
EXAM DATE: 06/23/2018 5:16 AM EDT AGE/SEX: 62 years / Female INDICATIONS: Shortness of breath. CLINICAL DATA: This is the patient's subsequent encounter. Patient reports that signs and symptoms h ave been present for 3 days and indicates a pain score of Nonresponsive. MEDICAL/SURGICAL HISTORY: None. None. COMPARISON: [facility] [place] [facility] [place], [place]/22/2018. . FINDINGS: Right [id number] tip in superior vena cava. Left-sided loculated pleural effusion stable to slight ly increased from June 22. Patchy right basilar airspace disease is stable to slightly increased . No pneumothorax. CONCLUSION: Loculated left effusion and airspace disease stable to slightly increased from June 22. Mild rig ht basilar airspace disease and trace loculated fluid. Extensive osseous metastases. Electronically signed by: Dima Regalado MD 06/23/2018 5:40 AM EDT
[2018-06-23 06:35] VITALS: RESP 25
[2018-06-23 07:35] LABS: Hematocrit 25.6 % (35.0-46.0); Hemoglobin 8.5 gm/dL (11.6-15.3); Mean Corpuscular HGB Conc 33.1 % (32.0-36.0); Mean Corpuscular Hemoglobin 28.1 pg (27.0-34.0); Mean Corpuscular Volume 84.8 fL (80.0-100.0); Mean Platelet Volume 7.6 fL (7.0-11.0); Platelet Count 400 th/mm3 (150-450); Red Blood Count 3.01 mil/mm3 (4.00-5.30); Red Cell Distribution Width 18.3 % (11.6-17.2); White Blood Count 12.8 th/mm3 (4.0-11.0)
[2018-06-23 08:03] LABS: Alanine Aminotransferase 18 U/L (10-53); Albumin 2.7 g/dL (3.4-5.0); Alkaline Phosphatase 250 U/L (45-117); Anion Gap 15 meq/L (5-15); Aspartate Aminotransferase 101 U/L (15-37); Blood Urea Nitrogen 19 mg/dL (7-18); Carbon Dioxide 25.7 meq/L (21.0-32.0); Chloride 102 meq/L (98-107); Glomerular Filtration Rate Greater Than 89 mL/min (>89); Glucose,Random 115 mg/dL (74-106); Potassium 3.6 meq/L (3.5-5.1); Sodium 143 meq/L (136-145); Total Protein 5.9 g/dL (6.4-8.2)
[2018-06-23] MEDS: Senna/Docusate Sodium 8.6/50 MG Tablet PO SCH (08:11)
[2018-06-23] MEDS: Pantoprazole Inj 40 MG Vial IV.PUSH SCH (08:11)
[2018-06-23 08:40] LABS: Lymphocytes 2 % (9-44); Monocytes 8 % (0-8)
[2018-06-23 08:41] LABS: Platelet Estimate Normal (Normal); Platelet Morphology Normal (Normal)
[2018-06-23] MEDS ORDERED: Morphine Sulfate Inj 2 MG/ML Vial ONE (09:34)
[2018-06-23] MEDS ORDERED: Morphine Inj 4 MG/ML Vial IV.PUSH STA (09:36)
[2018-06-23] MEDS ORDERED: HYDROmorphone PF Inj 2 MG/ML Vial IV.PUSH PRN (09:38)
[2018-06-23] MEDS ORDERED: Morphine Inj 4 MG/ML Vial IV.PUSH PRN (09:38)
[2018-06-23 09:57] VITALS: O2SAT 94
[2018-06-23 09:58] VITALS: BP 111/77; PULSE 137
[2018-06-23] MEDS ORDERED: Pharmacy Ordered Lab Info OTHER ONE (22:45)
--- NOTE | 2018-06-23 23:07 | P.PNONC ---
Subjective Interval history: LATE ENTRY . Pt seen early in the morning. C/O SOB Stated that she has ticket for tomorrow to fly to [place]. she does not want any more treatment for breast ca. Objective Vital Signs/Intake & Output: Vital Signs 06/23/18 02:55 06/23/18 03:00 06/23/18 03:05 Temperature 98.8 F Pulse Rate 130 H 132 H 134 H Respiratory Rate 33 H 25 H 19 Blood Pressure 108/66 104/68 108/73 Pulse Oximetry 93 L 91 L 94 L 06/23/18 03:10 06/23/18 03:15 06/23/18 03:20 Temperature Pulse Rate 132 H 135 H 131 H Respiratory Rate 26 H 28 H 24 Blood Pressure 109/73 117/79 115/77 Pulse Oximetry 94 L 91 L 90 L 06/23/18 03:25 06/23/18 03:30 06/23/18 03:35 Temperature Pulse Rate 134 H 136 H 133 H Respiratory Rate 24 26 H 12 Blood Pressure 114/78 115/78 107/55 L Pulse Oximetry 95 96 92 L 06/23/18 03:40 06/23/18 03:45 06/23/18 03:50 Temperature Pulse Rate 134 H 130 H 135 H Respiratory Rate 25 H 18 20 Blood Pressure 124/79 117/78 122/83 Pulse Oximetry 93 L 91 L 91 L 06/23/18 03:55 06/23/18 04:00 06/23/18 04:05 Temperature Pulse Rate 133 H 134 H 134 H Respiratory Rate 27 H 27 H 22 Blood Pressure 119/81 117/79 111/78 Pulse Oximetry 91 L 92 L 92 L 06/23/18 04:10 06/23/18 04:15 06/23/18 04:20 Temperature Pulse Rate 134 H 134 H 132 H Respiratory Rate 27 H 26 H 27 H Blood Pressure 111/75 114/74 109/66 Pulse Oximetry 92 L 92 L 91 L 06/23/18 04:25 06/23/18 04:30 06/23/18 04:35 Temperature Pulse Rate 134 H 134 H 134 H Respiratory Rate 22 27 H 26 H Blood Pressure 112/74 111/74 111/73 Pulse Oximetry 91 L 92 L 92 L 06/23/18 04:40 06/23/18 04:45 06/23/18 04:50 Temperature Pulse Rate 135 H 135 H 134 H Respiratory Rate 22 18 18 Blood Pressure 110/72 109/73 105/74 Pulse Oximetry 91 L 89 L 89 L 06/23/18 04:55 06/23/18 05:00 06/23/18 05:05 Temperature Pulse Rate 134 H 134 H 134 H Respiratory Rate 15 21 20 Blood Pressure 109/75 111/73 110/70 Pulse Oximetry 91 L 91 L 91 L 06/23/18 05:10 06/23/18 05:15 06/23/18 05:20 Temperature Pulse Rate 134 H 133 H 134 H Respiratory Rate 22 24 20 Blood Pressure 110/71 109/71 111/78 Pulse Oximetry 91 L 91 L 90 L 06/23/18 05:25 06/23/18 05:30 06/23/18 05:35 Temperature Pulse Rate 135 H 137 H 134 H Respiratory Rate 20 22 18 Blood Pressure 116/75 106/73 107/71 Pulse Oximetry 91 L 90 L 90 L 06/23/18 05:40 06/23/18 05:45 06/23/18 05:50 Temperature Pulse Rate 134 H 133 H 133 H Respiratory Rate 27 H 20 20 Blood Pressure 109/70 112/69 112/73 Pulse Oximetry 90 L 87 L 89 L 06/23/18 05:55 06/23/18 06:00 06/23/18 06:05 Temperature Pulse Rate 133 H 135 H 133 H Respiratory Rate 23 20 20 Blood Pressure 113/75 109/76 110/74 Pulse Oximetry 89 L 90 L 89 L 06/23/18 06:10 06/23/18 06:15 06/23/18 06:20 Temperature Pulse Rate 133 H 134 H 133 H Respiratory Rate 23 20 24 Blood Pressure 116/76 114/76 115/77 Pulse Oximetry 88 L 89 L 90 L 06/23/18 06:25 06/23/18 06:30 06/23/18 07:00 Temperature Pulse Rate 132 H 134 H 140 H Respiratory Rate 26 H 25 H 25 H Blood Pressure 114/77 114/76 107/77 Pulse Oximetry 90 L 89 L 89 L 06/23/18 08:00 06/23/18 09:57 Temperature Pulse Rate 137 H Respiratory Rate 25 H Blood Pressure 111/77 Pulse Oximetry 92 L 94 L Intake & Output 06/23/18 06/23/18 06/24/18 06:59 18:59 06:59 Intake Total 2312.5 / 2312.5 50 / 50 Balance 2312.5 / 2312.5 50 / 50 Intake: IV 2312.5 / 2312.5 50 / 50 NS Inj 1,000 ML @ 84 mls/hr IV. 1999 CONT .[id number] [facility] Rx#:[id number] Zosyn 3.375 GM Premix 50 ML @ 50 / 50 50 / 50 100 mls/hr IV.SIG Q6H [facility] Rx#: [id number] Vancomycin Inj 1,250 MG In NS 262.5 / 262.5 Inj 250 ML @ 250 mls/hr IV.SIG Q12H [facility] Rx#:[id number] Other: # Urine Diapers 2 Result Diagrams: 06/23/18 06:30 06/23/18 06:30 Laboratory Results: Laboratory Results - last 24 hr 06/23/18 06/23/18 06/23/18 00:41 06:30 06:30 WBC 12.8 H RBC 3.01 L Hgb 8.5 L Hct 25.6 L MCV 84.8 MCH 28.1 MCHC 33.1 RDW 18.3 H Plt Count 400 MPV 7.6 Prelim Diff (Auto) Manual diff required WBC Differential Manual diff final Seg Neuts % (Manual) 58 Band Neuts % (Manual) 32 H Lymphocytes % (Manual) 2 L Monocytes % (Manual) 8 Abs Neuts (Manual) 11.5 H Differential Comment . Platelet Estimate Normal Platelet Morphology Normal Sodium 143 Potassium 3.6 Chloride 102 Carbon Dioxide 25.7 Anion Gap 15 BUN 19 H Creatinine 0.38 L Estimated GFR Greater than 89 POC Glucose 131 H Random Glucose 115 H Calcium 7.0 L* Prot Corrected Calcium 7.6 L Total Bilirubin 1.5 H AST 101 H ALT 18 Alkaline Phosphatase 250 H Total Protein 5.9 L Albumin 2.7 L Culture Results: Microbiology 06/22/18 09:18 Gram Stain - Final Fluid - Pleural fluid Body Fluid Culture - Preliminary No growth in 24 hours 06/21/18 17:45 Aerobic Blood Culture - Preliminary Blood - Peripheral No growth in 2 days Anaerobic Blood Culture - Preliminary Klebsiella pneumoniae 06/21/18 17:15 Aerobic Blood Culture - Preliminary Blood - Peripheral Klebsiella pneumoniae Anaerobic Blood Culture - Preliminary Group D Enterococcus 06/22/18 09:18 Fungal Smear - Final Fluid - Pleural fluid No fungal elements seen Imaging Studies: Impressions Chest X-Ray 06/23/18 05:00 CONCLUSION: Loculated left effusion and airspace disease stable to slightly increased from June 22. Mild right basilar airspace disease and trace loculated fluid. Extensive osseous metastases. Objective Remarks: GENERAL: cachectic patient. SKIN: Warm and dry. HEAD: Normocephalic. EYES: No scleral icterus. No injection or drainage. NECK: Supple, trachea midline. No JVD or lymphadenopathy. LYMPHATIC: No adenopathy. CARDIOVASCULAR: Regular rate and rhythm without murmurs. RESPIRATORY: decrease breath sounds on left side. GASTROINTESTINAL: Abdomen distended. EXTREMITIES: No cyanosis, or edema. NEUROLOGICAL: No obvious focal deficit. Awake, alert, and oriented x3. Assessment/Plan (1) Breast cancer metastasized to bone Code(s): C50.919 - Malignant neoplasm of unspecified site of unspecified female breast; C79.51 - Secondary malignant neoplasm of bone Status: Acute - Plan Records from [facility] were reviewed. she has had extensive treatment for mets breast ca. She is unable to tolerate further chemo. She has multiple admission recently at [facility]. I have discuss with pt in presence of RN (Haley). She does not want anymore chemotherapy. she made the cross sign and said stop it. Case D/W Dr Huang field artillery operations specialist. I have recommended hospice for BSC. is not available at this time. DR Huang will speak to about her poor condition and hospice. sign off available prn PS : I received call from Reina few hrs later that pt became unresponsive. made her DNR. She was tachycardiac and then went into asystole. she was pronounced by DR Huang. (1) Breast cancer metastasized to bone Qualifiers: Laterality: unspecified laterality Qualified Code(s): C50.919 - Malignant neoplasm of unspecified site of unspecified female breast; C79.51 - Secondary malignant neoplasm of bone
--- NOTE | 2018-08-03 17:12 | P.DN ---
- Provider Primary care physician: No Primary Care Physician Consults: 06/21/18 18:37 Consult to Hematology Routine Consulting Provider: Tab Iniguez [employer] Ironer:: Deonte Quinteros Patient known to:: Deonte Quinteros Reason for Consultation: Patient with breast cancer metastasis to bone. Notified:: Service Spoke with:: Ashleigh Date Notified:: 06/21/18 Time Notified:: 18:45 Ordering Provider: YON 06/22/18 07:08 Consult to Palliative Care Routine Consulting Provider: Medhat Argueta Reason for Consultation: assist with deciding goals of therapy Notified:: Service Spoke with:: raven Date Notified:: 06/22/18 Time Notified:: 07:28 Ordering Provider: AYAN - Admitting Diagnosis (1) Sepsis (2) Pleural effusion (3) Breast cancer metastasized to bone (4) Acute hypokalemia (5) Acute renal insufficiency (6) Carcinomatosis (7) Diabetes mellitus (8) Pain (9) Fatigue (10) Nausea & vomiting (11) Hypocalcemia (12) Anemia (13) Hypoalbuminemia - Diagnosis at Time of (1) Breast cancer metastasized to bone Diagnosis: Principal (2) Diabetes mellitus Diagnosis: Secondary (3) Carcinomatosis Diagnosis: Secondary (4) Acute renal insufficiency Diagnosis: Secondary (5) Sepsis Diagnosis: Secondary (6) Pleural effusion Diagnosis: Secondary (7) Pain Diagnosis: Secondary (8) Nausea & vomiting Diagnosis: Secondary (9) Hypocalcemia Diagnosis: Secondary (10) Anemia Diagnosis: Secondary (11) Hypoalbuminemia Diagnosis: Secondary - Date and Time Date of admission: 06/21/18 18:32 Date of : 06/23/18 Time of : 09:39 - Summary Brief History: This is a 62-year-old female. Date of admission 06/21/2018. Past medical history includes diabetes mellitus, breast cancer metastatic to the bones. Patient is been receiving admitted to the hospital multiple times at other facilities for her underlying illness. She recently had a paracentesis 1 month ago and a thoracentesis 3 weeks ago. Her oncologist is Dr. Deonte Quinteros. She presents to [facility] with several day history of nausea/bilious vomiting and diarrhea. EMS found her with a systolic blood pressure in the 40s. She is received 2 L normal saline after accessing her right Port-A-Cath. She received vancomycin Pipracil/tazobactam. Her initial lactate was 3.2. BMP after 2 hours and still not resulted. CBC showed leukocytosis of 16,000. PTT was elevated 147 will be repeated along with a fibrinogen. She is currently resting in bed breathing about 20 breaths per minute in room E 59. She is Luxembourger-speaking only. does speak Lithuanian. Result Diagrams: 06/23/18 06:30 06/23/18 06:30 Imaging: Abdomen Ultrasound 06/21/18 00:00 CONCLUSION: 1. Positive for gallbladder sludge without gallbladder wall thickening and trace pericholecystic fluid. Cannot exclude mild cholecystitis. Common bile duct mildly dilated at 8 mm. 2. Small amount of ascites. Chest CT 06/21/18 00:00 CONCLUSION: 1. Extensive diffuse sclerotic osseous metastatic disease. 2. Moderate size left pleural effusion and smaller loculated right effusion. The right lateral component accounts for the pleural-based density seen on the plain film. There are no parenchymal masses. Chest X-Ray 06/21/18 17:00 CONCLUSION: 1. Large left-sided opacity likely representing pleural effusion with associated volume loss and/or airspace consolidation. 2. Suspected small pleural-based opacity inferiorly on the right could represent a pleural-based mass or pleural effusion. Abdomen/Pelvis CT 06/22/18 00:00 CONCLUSION: 1. Ascites with mesenteric and omental stranding and thickening characteristic of carcinomatosis. 2. Diffuse wall thickening of the small intestinal tract. 3. Bilateral pleural effusions with large cumulation of fluid on the left. 4. Sclerotic bone lesions characteristic of metastatic disease. Chest X-Ray 06/22/18 00:00 CONCLUSION: Negative for pneumothorax following thoracentesis. Head CT 06/22/18 00:00 CONCLUSION: Atrophy, , poor lane-white matter differentiation; nonspecific, otherwise negative for an acute process. Landon Wilks MD FACR . Thoracentesis Ultrasound 06/22/18 00:00 CONCLUSION: 1. Uncomplicated ultrasound-guided left thoracentesis. Chest X-Ray 06/23/18 05:00 CONCLUSION: Loculated left effusion and airspace disease stable to slightly increased from June 22. Mild right basilar airspace disease and trace loculated fluid. Extensive osseous metastases. Hospital Course: 06/22: SOB 06/23: Remains dypneic and anxious. Assessment and Plan - Assessment and Plan Plan: Neuro/Psych: Acute toxic metabolic encephalopathy secondary to severe sepsis Acetaminophen 650 p.o. every 6 hours as needed fever Hydrocodone/acetaminophen 5/325 1 tablet every 4 as needed 1-5 Hydromorphone 1 g IV every 4 hours. Pain 6 - 10 CV: Sinus tachycardia Lactic acidosis Bolus 2 L normal saline in ED. Recheck lactate and follow trends until cleared Initial troponin negative. Recheck in a.m. Follow-up on EKG and limited 2D echocardiogram ordered Resp: Likely left pleural effusion CT thorax ordered. Likely need thoracentesis Recheck coags prior to initiation Currently on room air not emergent Incentives biometry every hour while awake Albuterol/ipratropium aerosols every 4 hours with albuterol aerosols every 2 hours as needed dyspnea GI: Nausea/vomiting Hypoalbuminemia Elevated AST Currently n.p.o. LFTs not grossly abnormal. Check lipase and amylase Pantoprazole for GI prophylaxis Docusate serum/senna 1 tablet twice daily for bowel regimen Check abdominal ultrasound with history of paracentesis We will obtain CT abdomen pelvis for further evaluation in view of nausea vomiting/abdominal pain. : Hand catheter if indicated for accurate I's and O's in a critically ill patient Endo: Diabetes mellitus Sliding scale insulin Accu-Cheks to maintain euglycemia/low regimen with aspart insulin every 6 hours Check TSH Renal: Acute kidney injury Recheck BMP in a.m. 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 Follow trends. No indication for transfusion of blood products at this time. Transfuse to keep hemoglobin above 7 g percent ID: Severe sepsis received piperacillin/tazobactam and vancomycin ED. Renally dose antibiotics as above. Blood cultures 2 ordered. UA pending MSK: PT evaluate and treat FEN: Hypopotassemia Hyponatremia Hyper magnesium Replace electrolytes as clinically indicated 80 mEq KCl x1 now. Access -Utilize right Port-A-Cath. Prophylaxis -GI -pantoprazole -DVT-SCD/initiate subcutaneous heparin after thoracentesis Extensive discussion with palliative care/ Dr. Meneses from oncology. Extensive metastatic disease. Patient terminal. agreed with changing to DNR status with comfort measures. Patient eventually went into cardiac arrest and on 06/23/18 at 0939 hours.
== END 2018-06-23 09:39 | disposition expired ==
LOC: NEPE 16:48 → NEDA 18:32 → HIMC 19:55
PROVIDERS: ADMIT Internal Medicine Critical Care Medicine; ATTEND Internal Medicine Critical Care Medicine